=== PATIENT | female | born 1950 | race Caucasian/White ===

== ENCOUNTER → 2017-08-05 | Outpatient (CLI) | payer OTHER ==
[~2017-08-05] MED LIST: CLOP1TAB15 PO; FLUO40CA8 PO; IBUP-1450 PO; LEVO112T4 PO; METO50TA16 PO; PANT40TA PO; SUMA100T16 PO; TOPI50TA16 PO; VSC/5 PO
[2017-08-05 12:23] LABS: BASO % 0.5 %; BASO ABS # 0.04 K/uL (0-0.2); COMPLETE YES; EOS % 3.4 %; HEMATOCRIT 39.7 % (37-47); IG% 0.6 %; LYMPH % 31.3 %; LYMPH ABS # 2.59 K/uL (1.2-3.4); MEAN CORPUSCULAR HEMOGLOBIN 27.8 pg (25-34); MEAN CORPUSCULAR HGB CONC 32.7 g/dl (32-36); MEAN PLATELET VOLUME 10.4 fL (7.4-10.4); MONO % 5.6 %; NEUT % 58.6 %; PLATELET COUNT 290 K/uL (130-400); RED BLOOD COUNT 4.67 M/uL (4.2-5.4); WHITE BLOOD COUNT 8.28 K/uL (4.8-10.8)
[2017-08-05 13:22] LABS: CHOLESTEROL/HDL RATIO 4.4; THYROID STIMULATING HORMONE 0.801 uIu/ml (0.300-4.500)
[2017-08-05 14:39] LABS: ESTIMATED AVERAGE GLUCOSE 131 mg/dl; HA1C FLAG Normal (Normal)
== END | disposition home or self-care (01) ==
LOC: C.LAB 10:40
PROVIDERS: ATTEND Family Medicine
DX: E03.9 Hypothyroidism, unspecified (principal); I10 Essential (primary) hypertension; I67.9 Cerebrovascular disease, unspecified; E11.9 Type 2 diabetes mellitus without complications

== ENCOUNTER 2017-12-22 22:19 | Observation (INO) | payer OTHER ==
[~2017-12-22] VITALS: Ht 170.2 cm; Wt 80.7 kg
[~2017-12-22 22:19] MED LIST changes: +FLUO10CA48 PO; -IBUP-1450 PO; +LOSA1TAB38 PO; -METO50TA16 PO; -SUMA100T16 PO
--- NOTE | 2017-12-22 22:46 | EMERGENCY ROOM VISIT NOTE ---
History Report prepared by Melba: Roxy Ramires Under the Supervision of: Dr. Tyron Wilkinson M.D. First contact with patient: 22:24 Chief Complaint: CHEST PAIN Stated Complaint: CHEST PAIN History of Present Illness The patient is a 67 year old female who presents to the Emergency Room with complaints of worsening substernal chest pain that began about 5 hours prior to arrival. She reports that she was sitting down after eating dinner today when she began experiencing a pressure on her chest that did not seem to go away. The patient notes that she took Lorazepam because she thought she was going to have a panic attack, noting she did not take any Nitroglycerin to relieve her symptoms. She denies any shortness of breath, sweating, nausea, vomiting, or diarrhea. She reports that refused a bypass in September, but her symptoms feel similar to what they were back then. Source of History: patient Onset: about 5 hours prior to arrival Position: chest (left) Quality: other (left chest pressure) Timing: worsening Associated Symptoms: No SOB, No nausea, No vomiting, No diarrhea Note: Patient denies sweating. Review of Systems See HPI for pertinent positives and negatives. A total of ten systems were reviewed and were otherwise negative. Past Medical & Surgical Medical Problems: (1) Anxiety (2) Chest pain (3) Chest pain in adult (4) Diabetes (5) HTN (hypertension) CAD Family History FH: heart disease Social History Smoking Status: Former Smoker Drug Use: none Marital Status: Housing Status: lives alone Occupation Status: employed Current/Historical Medications Scheduled Aspirin (Aspirin Ec), 81 MG PO DAILY Atorvastatin (Lipitor), 80 MG PO QPM Clopidogrel (Plavix), 75 MG PO QAM Fluoxetine (Prozac), 40 MG PO QAM Fluoxetine (Prozac), 10 MG PO QAM Levothyroxine Sodium (Levothyroxine Sodium), 112 MG PO QAM Losartan Potassium (Cozaar), 100 MG PO DAILY Metformin Hcl Er (Glucophage Er), 1,000 MG PO QPM Metoprolol Tartrate (Lopressor) (Lopressor), 12.5 MG PO BID Pantoprazole (Protonix), 40 MG PO QAM Solifenacin (Vesicare), 5 MG PO QAM Topiramate (Topamax), 50 MG PO QAM Scheduled PRN Lorazepam (Lorazepam), 0.5 MG PO Q6 PRN for Anxiety Allergies Coded Allergies: Acetaminophen (Verified Allergy, Intermediate, NUMBNESS OF FACE, 09/28/17) Oxycodone (Verified Allergy, Intermediate, NUMBNESS OF FACE, 09/28/17) CHASIDY Inhibitors (Verified Allergy, Unknown, UNKNOWN, 09/28/17) Aspirin (Unverified Allergy, Unknown, GI SYMPTOMS, 09/28/17) Caffeine (Unverified Allergy, Unknown, GI SYMPTOMS, 09/28/17) Codeine (Unverified Allergy, Unknown, GI SYMPTOMS, 09/28/17) Levofloxacin (Unverified Allergy, Unknown, HEADACHE, 09/28/17) Physical Exam Vital Signs Date Time Temp Pulse Resp B/P (MAP) Pulse Ox O2 Delivery O2 Flow Rate FiO2 12/23/17 00:56 56 18 123/73 97 Nasal Cannula 2.0 12/23/17 00:05 98 Nasal Cannula 2.0 12/22/17 23:39 56 18 110/70 93 Room Air 12/22/17 23:32 62 18 139/79 97 Room Air 12/22/17 23:02 56 18 117/66 96 Room Air 12/22/17 22:45 Room Air 12/22/17 22:45 98 Room Air 12/22/17 22:34 59 12/22/17 22:21 36.3 83 16 161/82 98 Room Air Physical Exam GENERAL: Awake, alert, uncomfortable-appearing, in no distress HENT: Dry mucous membranes. Normocephalic, atraumatic. Oropharynx unremarkable. EYES: Normal conjunctiva. Sclera non-icteric. NECK: Supple. No nuchal rigidity. FROM. No JVD. RESPIRATORY: Clear to auscultation. CARDIAC: Regular rate, normal rhythm. Extremities warm and well perfused. Pulses equal. ABDOMEN: Soft, non-distended. No tenderness to palpation. No rebound or guarding. No masses. RECTAL: Deferred. MUSCULOSKELETAL: Chest examination reveals no tenderness. The back is symmetrical on inspection without obvious abnormality. There is no CVA tenderness to palpation. No joint edema. LOWER EXTREMITIES: Calves are equal size bilaterally and non-tender. No edema. No discoloration. NEURO: Normal sensorium. No sensory or motor deficits noted. SKIN: No rash or jaundice noted. Medical Decision & Procedures ER Provider Diagnostic Interpretation: X-ray: Per my interpretation, radiologist review. CHEST ONE VIEW PORTABLE HISTORY: Atypical CHEST PAIN COMPARISON: Chest 09/28/2017. FINDINGS: The lungs are clear. The heart is mildly enlarged. No pleural effusions. No pneumothorax. Surgical clips within the left neck. Mild elevation of the right hemidiaphragm. IMPRESSION: Mild elevation of the right hemidiaphragm. Otherwise, no acute process within the chest. Electronically signed by: Pop Villafana M.D. 12/22/2017 11:06 PM Dictated Date/Time: 12/22/2017 11:05 PM Laboratory Results 12/22/17 22:45 Red Blood Count 4.36, Mean Corpuscular Volume 83.5, Mean Corpuscular Hemoglobin 27.8, Mean Corpuscular Hemoglobin Concent 33.2, Mean Platelet Volume 9.8, Neutrophils (%) (Auto) 53.5, Lymphocytes (%) (Auto) 36.9, Monocytes (%) (Auto) 6.2, Eosinophils (%) (Auto) 2.3, Basophils (%) (Auto) 0.6, Neutrophils # (Auto) 4.52, Lymphocytes # (Auto) 3.11, Monocytes # (Auto) 0.52, Eosinophils # (Auto) 0.19, Basophils # (Auto) 0.05 12/22/17 22:45 Test 12/22/17 22:45 12/23/17 00:04 White Blood Count 8.43 K/uL (4.8-10.8) Red Blood Count 4.36 M/uL (4.2-5.4) Hemoglobin 12.1 g/dL (12.0-16.0) Hematocrit 36.4 % (37-47) Mean Corpuscular Volume 83.5 fL (80-100) Mean Corpuscular Hemoglobin 27.8 pg (25-34) Mean Corpuscular Hemoglobin Concent 33.2 g/dl (32-36) Platelet Count 244 K/uL (130-400) Mean Platelet Volume 9.8 fL (7.4-10.4) Neutrophils (%) (Auto) 53.5 % Lymphocytes (%) (Auto) 36.9 % Monocytes (%) (Auto) 6.2 % Eosinophils (%) (Auto) 2.3 % Basophils (%) (Auto) 0.6 % Neutrophils # (Auto) 4.52 K/uL (1.4-6.5) Lymphocytes # (Auto) 3.11 K/uL (1.2-3.4) Monocytes # (Auto) 0.52 K/uL (0.11-0.59) Eosinophils # (Auto) 0.19 K/uL (0-0.5) Basophils # (Auto) 0.05 K/uL (0-0.2) RDW Standard Deviation 42.7 fL (36.4-46.3) RDW Coefficient of Variation 14.0 % (11.5-14.5) Immature Granulocyte % (Auto) 0.5 % Immature Granulocyte # (Auto) 0.04 K/uL (0.00-0.02) Prothrombin Time 10.0 SECONDS (9.0-12.0) Prothromb Time International Ratio 1.0 (0.9-1.1) Activated Partial Thromboplast Time 22.9 SECONDS (21.0-31.0) Partial Thromboplastin Ratio 0.9 Anion Gap 8.0 mmol/L (3-11) Est Creatinine Clear Calc Drug Dose 58.8 ml/min Estimated GFR () 67.4 Estimated GFR (Non- 58.1 BUN/Creatinine Ratio 21.8 (10-20) Calcium Level 9.2 mg/dl (8.5-10.1) Magnesium Level 1.8 mg/dl (1.8-2.4) Total Bilirubin 0.3 mg/dl (0.2-1) Direct Bilirubin 0.1 mg/dl (0-0.2) Aspartate Amino Transf (AST/SGOT) 21 U/L (15-37) Alanine Aminotransferase (ALT/SGPT) 33 U/L (12-78) Alkaline Phosphatase 112 U/L (45-117) Total Protein 7.0 gm/dl (6.4-8.2) Albumin 3.6 gm/dl (3.4-5.0) Lipase 242 U/L (73-393) Troponin I < 0.015 ng/ml (0-0.045) Laboratory results reviewed by me Medications Administered Medications (Trade) Dose Ordered Sig/Jeanie Route Start Time Stop Time Status Last Admin Dose Admin Nitroglycerin (Nitrostat Tab) 0.4 mg NOW STAT SL 12/22/17 23:19 12/22/17 23:20 DC 12/22/17 23:27 0.4 MG Aspirin (Aspirin Chew) 324 mg NOW STAT PO 12/22/17 23:20 12/22/17 23:21 DC 12/22/17 23:27 324 MG Famotidine (Pepcid 20mg Iv Push) 20 mg NOW STAT IV 12/22/17 23:42 12/22/17 23:43 DC 12/22/17 23:52 20 MG ECG Per My Interpretation Indication: chest pain Rate (beats per minute): 62 Rhythm: sinus rhythm Findings: 1st degree AV block, no acute ischemic change, other (normal axis) ED Course 2224: The patient was evaluated in room A11. A complete history and physical exam was performed. 2111: Reevaluated the patient, who was resting with her family at bedside. Discussed some test findings and they verbalized complete understanding. Doing a second troponin. 0008: Discussed the patients case with Dr. Jackson, cardiology. The states that it is probably best to keep the patient here for a full evaluation and see how she does overnight. 0024: I reevaluated the patient and updated the patient on test findings. They verbalized agreement of the treatment plan. Medical Decision I reviewed the patient's past medical history, medications, and the nursing notes as described above. Differential diagnosis: Etiologies such as cardiac ischemia, aortic dissection, pulmonary embolism, pneumonia, pneumothorax, musculoskeletal, infections, pericarditis, myocarditis , esophageal rupture, gastrointestinal, as well as others were entertained. The patient is a 67-year-old woman with a past medical history of CAD status post LAD stenting in September, HTN ,diabetes who presents emergency department with substernal chest pressure similar to her prior [place] per hpi. Of note, in September had left heart catheterization that showed 90% ostial LAD lesion that was determined to be high risk and was referred to [facility] for possible bypass. However the patient reports that she declined bypass and received stenting. On arrival, the patient is uncomfortable but no acute distress, afebrile stable vital signs. EKG is without acute ischemia. Initial troponin approximately 4.5 hours after onset of symptoms is negative. Labs otherwise unremarkable. Chest x-ray negative. Symptoms improved with nitroglycerin and aspirin and also additionally improved after IV Pepcid. Given the patient's history, Heart score is 6, moderate risk. I discussed the case with Dr. Eller, the patient' s car refinisher, who agrees that it is reasonable to admit the patient for serial troponins and to monitor for recurrent symptoms. Case d/w Dr. Live, [facility] hospitalist who will admit the patient for further management. Medication Reconcilliation Current Medication List: was personally reviewed by me Consults Time Called: 7 Consulting Physician: Dr. Jackson, cardiology Returned Call: [phone] Discussed the patients case with Dr. Jackson, cardiology. The states that it is probably best to keep the patient here for a full evaluation and see how she does overnight.. Impression Primary Impression: Substernal precordial chest pain Scribe Attestation The scribe's documentation has been prepared under my direction and personally reviewed by me in its entirety. I confirm that the note above accurately reflects all work, treatment, procedures, and medical decision making performed by me. Departure Information Dispostion Being Evaluated By Hospitalist Referrals Landon Alvarez D.O. (PCP) Forms Call Back Authorization, HOME CARE DOCUMENTATION FORM, IMPORTANT VISIT INFORMATION Patient Instructions [facility]
[2017-12-22] MEDS ORDERED: ATV5X PO (22:59)
[2017-12-22] MEDS ORDERED: ATOR-26 PO (22:59)
[2017-12-22] MEDS ORDERED: ASPI81TA28 PO (22:59)
[2017-12-22] MEDS ORDERED: METO25TA56 PO (22:59)
[2017-12-22] MEDS ORDERED: METF500T5 PO (22:59)
[2017-12-22 23:00] LABS: BASO % 0.6 %; BASO ABS # 0.05 K/uL (0-0.2); EOS % 2.3 %; EOS ABS # 0.19 K/uL (0-0.5); HEMATOCRIT 36.4 % (37-47); HEMOGLOBIN 12.1 g/dL (12.0-16.0); IG# 0.04 K/uL (0.00-0.02); LYMPH % 36.9 %; LYMPH ABS # 3.11 K/uL (1.2-3.4); MEAN CELL VOLUME 83.5 fL (80-100); MEAN CORPUSCULAR HEMOGLOBIN 27.8 pg (25-34); MEAN CORPUSCULAR HGB CONC 33.2 g/dl (32-36); MEAN PLATELET VOLUME 9.8 fL (7.4-10.4); MONO % 6.2 %; MONO ABS # 0.52 K/uL (0.11-0.59); NEUT % 53.5 %; NEUT ABS # 4.52 K/uL (1.4-6.5); PLATELET COUNT 244 K/uL (130-400); RED CELL DISTRIBUTION WIDTH SD 42.7 fL (36.4-46.3); WHITE BLOOD COUNT 8.43 K/uL (4.8-10.8)
--- NOTE | 2017-12-22 23:08 | DIAGNOSTIC IMAGING REPORT ---
CHEST ONE VIEW PORTABLE HISTORY: Atypical CHEST PAIN COMPARISON: Chest 09/28/2017. FINDINGS: The lungs are clear. The heart is mildly enlarged. No pleural effusions. No pneumothorax. Surgical clips within the left neck. Mild elevation of the right hemidiaphragm. IMPRESSION: Mild elevation of the right hemidiaphragm. Otherwise, no acute process within the chest. Electronically signed by: Pop Villafana M.D. 12/22/2017 11:06 PM Dictated Date/Time: 12/22/2017 11:05 PM
[2017-12-22 23:11] LABS: PTT PATIENT 22.9 SECONDS (21.0-31.0)
[2017-12-22] MEDS ORDERED: NITROGLYCERIN 0.4 MG SL PER TAB CHARGE SL STA (23:19)
[2017-12-22] MEDS ORDERED: ASPIRIN 81 MG CHEW PO STA (23:20)
[2017-12-22 23:21] LABS: ALBUMIN 3.6 gm/dl (3.4-5.0); ALT/SGPT 33 U/L (12-78); BLOOD UREA NITROGEN 22 mg/dl (7-18); CALCIUM 9.2 mg/dl (8.5-10.1); CARBON DIOXIDE 26 mmol/L (21-32); CREATININE 0.99 mg/dl (0.60-1.20); GLUCOSE 136 mg/dl (70-99); LIPASE 242 U/L (73-393); SODIUM 139 mmol/L (136-145)
[2017-12-22 23:26] LABS: ALKALINE PHOSPHATASE 112 U/L (45-117); AST/SGOT 21 U/L (15-37)
[2017-12-22] MEDS ORDERED: FAMOTIDINE 20MG/5ML IV PUSH IV STA (23:42)
[2017-12-23] VITALS (14 sets, daily range): BP systolic 106–149; BP diastolic 56–81; PULSE 53–59; TEMP 36.6–37.3; O2SAT 95–99; Ht 170.2 cm; Wt 80.7 kg
--- NOTE | 2017-12-23 01:14 | History and Physical ---
History & Physical Date & Time of Service: Dec 23, 2017 at 00:49 Chief Complaint: Chest Pain Primary Care Physician: Landon Alvarez D.O. History of Present Illness Source: patient 67 y/o F Hx TIA, HTN, DM II, hypothyroidism, CAD - severe LAD disease, NSTEMI . The pt was transferred from our facility to [place] following catheterization. She underwent LAD stenting although consideration was given to bypass. She returns to the hospital today with R central chest pressure which she describes as similar in location to the pain she had during her recent STEMI. She states that the pain is not as severe and denies accompanying SOB, N/V, diaphoresis or lightheadedness. The pain abated with NTG provided in the ER. Past Medical/Surgical History 1) TIA 2) DM type II 3) HTN 4) GERD 5) Depression/anxiety 6) Hypothyroidism 7) Migraine headaches 8) CAD: Cardiac cath 09/2017: LM - Short, distal luminal irregularities LAD - 90% ostial LAD stenosis, 60-70% stenosis after take-off of large 1st diagonal, luminal irregularities as wraps around apex Circumflex - Dominant, luminal irregularities; 20% disease in large proximal OM1 RCA - Small, early-mid luminal irregularities. Pt underwent LAD stenting at [place] Family History FH: heart disease Social History Smoking Status: Former Smoker Drug Use: none Marital Status: Occupational Status: employed Allergies Coded Allergies: Acetaminophen (Verified Allergy, Intermediate, NUMBNESS OF FACE, 09/28/17) Oxycodone (Verified Allergy, Intermediate, NUMBNESS OF FACE, 09/28/17) CHASIDY Inhibitors (Verified Allergy, Unknown, UNKNOWN, 09/28/17) Aspirin (Unverified Allergy, Unknown, GI SYMPTOMS, 09/28/17) Caffeine (Unverified Allergy, Unknown, GI SYMPTOMS, 09/28/17) Codeine (Unverified Allergy, Unknown, GI SYMPTOMS, 09/28/17) Levofloxacin (Unverified Allergy, Unknown, HEADACHE, 09/28/17) Home Medications Scheduled Aspirin (Aspirin Ec), 81 MG PO DAILY Atorvastatin (Lipitor), 80 MG PO QPM Clopidogrel (Plavix), 75 MG PO QAM Fluoxetine (Prozac), 40 MG PO QAM Fluoxetine (Prozac), 10 MG PO QAM Levothyroxine Sodium (Levothyroxine Sodium), 112 MG PO QAM Losartan Potassium (Cozaar), 100 MG PO DAILY Metformin Hcl Er (Glucophage Er), 1,000 MG PO QPM Metoprolol Tartrate (Lopressor) (Lopressor), 12.5 MG PO BID Pantoprazole (Protonix), 40 MG PO QAM Solifenacin (Vesicare), 5 MG PO QAM Topiramate (Topamax), 50 MG PO QAM Scheduled PRN Lorazepam (Lorazepam), 0.5 MG PO Q6 PRN for Anxiety Review of Systems Constitutional: No fever, No chills, No sweats Eyes: No worsening of vision ENT: No hearing loss, No unusual epistaxis, No nasal symptoms Respiratory: No cough, No sputum, No wheezing Cardiovascular: + chest pain Abdomen: No pain, No nausea, No vomiting Musculoskeletal: No joint pain Genitourinary - Female: No dysuria, No urinary frequency, No urinary urgency Neurologic: No memory loss, No paralysis, No weakness Psychiatric: No depression symptoms Endocrine: No fatigue Hematologic / Lymphatic: No abnormal bleeding/bruising Integumentary: No rash Allergic / Immunologic: No environmental allergies Physical Exam Vital Signs Date Time Temp Pulse Resp B/P (MAP) Pulse Ox O2 Delivery O2 Flow Rate FiO2 12/23/17 00:05 98 Nasal Cannula 2.0 12/22/17 23:39 56 18 110/70 93 Room Air 12/22/17 23:32 62 18 139/79 97 Room Air 12/22/17 23:02 56 18 117/66 96 Room Air 12/22/17 22:45 Room Air 12/22/17 22:45 98 Room Air 12/22/17 22:34 59 12/22/17 22:21 36.3 83 16 161/82 98 Room Air General Appearance: WD/WN, no apparent distress Head: normocephalic Eyes: normal inspection ENT: normal ENT inspection, pharynx normal Neck: supple, no JVD Respiratory/Chest: chest non-tender, lungs clear, normal breath sounds Cardiovascular: regular rate, rhythm, no edema Abdomen/GI: normal bowel sounds, non tender, soft Back: normal inspection, no CVA tenderness Extremities/Musculoskelatal: normal inspection, no calf tenderness, normal capillary refill, no pedal edema Neurologic/Psych: hand ii thermal cutter II-XII nml as tested, no motor/sensory deficits, alert, oriented x 3 Skin: normal color Diagnostics Laboratory Results Results Past 24 Hours Test 12/22/17 22:45 12/23/17 00:04 Range/Units White Blood Count 8.43 4.8-10.8 K/uL Red Blood Count 4.36 4.2-5.4 M/uL Hemoglobin 12.1 12.0-16.0 g/dL Hematocrit 36.4 37-47 % Mean Corpuscular Volume 83.5 80-100 fL Mean Corpuscular Hemoglobin 27.8 25-34 pg Mean Corpuscular Hemoglobin Concent 33.2 32-36 g/dl Platelet Count 244 130-400 K/uL Mean Platelet Volume 9.8 7.4-10.4 fL Neutrophils (%) (Auto) 53.5 % Lymphocytes (%) (Auto) 36.9 % Monocytes (%) (Auto) 6.2 % Eosinophils (%) (Auto) 2.3 % Basophils (%) (Auto) 0.6 % Neutrophils # (Auto) 4.52 1.4-6.5 K/uL Lymphocytes # (Auto) 3.11 1.2-3.4 K/uL Monocytes # (Auto) 0.52 0.11-0.59 K/uL Eosinophils # (Auto) 0.19 0-0.5 K/uL Basophils # (Auto) 0.05 0-0.2 K/uL RDW Standard Deviation 42.7 36.4-46.3 fL RDW Coefficient of Variation 14.0 11.5-14.5 % Immature Granulocyte % (Auto) 0.5 % Immature Granulocyte # (Auto) 0.04 0.00-0.02 K/uL Prothrombin Time 10.0 9.0-12.0 SECONDS Prothromb Time International Ratio 1.0 0.9-1.1 Activated Partial Thromboplast Time 22.9 21.0-31.0 SECONDS Partial Thromboplastin Ratio 0.9 Sodium Level 139 136-145 mmol/L Potassium Level 4.0 3.5-5.1 mmol/L Chloride Level 105 98-107 mmol/L Carbon Dioxide Level 26 21-32 mmol/L Anion Gap 8.0 3-11 mmol/L Blood Urea Nitrogen 22 7-18 mg/dl Creatinine 0.99 0.60-1.20 mg/dl Est Creatinine Clear Calc Drug Dose 58.8 ml/min Estimated GFR () 67.4 Estimated GFR (Non- 58.1 BUN/Creatinine Ratio 21.8 10-20 Random Glucose 136 70-99 mg/dl Calcium Level 9.2 8.5-10.1 mg/dl Magnesium Level 1.8 1.8-2.4 mg/dl Total Bilirubin 0.3 0.2-1 mg/dl Direct Bilirubin 0.1 0-0.2 mg/dl Aspartate Amino Transf (AST/SGOT) 21 15-37 U/L Alanine Aminotransferase (ALT/SGPT) 33 12-78 U/L Alkaline Phosphatase 112 45-117 U/L Troponin I < 0.015 0-0.045 ng/ml Total Protein 7.0 6.4-8.2 gm/dl Albumin 3.6 3.4-5.0 gm/dl Lipase 242 73-393 U/L Diagnostic Radiology CXR: Mild elevation of the right hemidiaphragm. Otherwise, no acute process within the chest. EKG NSR - 1' AV block Impression Assessment and Plan 67 y/o F Hx TIA, HTN, DM II, hypothyroidism, CAD - severe LAD disease, NSTEMI . The pt was transferred from our facility to [place] following catheterization. She underwent LAD stenting although consideration was given to bypass. She returns to the hospital today with R central chest pressure which she describes as similar in location to the pain she had during her recent STEMI. She states that the pain is not as severe and denies accompanying SOB, N/V, diaphoresis or lightheadedness. The pain abated with NTG provided in the ER. 1) CAD - CP - pt assigned to observation for ACS - NTG/Morphine PRN - cont Plavix, ASA, Statin, Bblocker - to be evaluated by her rooter operator AM 2) HTN - cont Metoprolol, Losartan 3) DM - placed on SS 4) Levothyroxine - Synthroid Full code - Lovenox prophylaxis Total time for this admit including review of recent records, labs, imaging, EKG - discussion with pt and ER attending - 38 min Resuscitation Status VTE Prophylaxis Will order VTE Prophylaxis: Yes
[2017-12-23] MEDS ORDERED: MAGNESIUM HYDROXIDE SUSP 30 ML UDC PO PRN (01:15)
[2017-12-23] MEDS ORDERED: ONDANSETRON INJ 2 MG/ML 2 ML VIAL IV PRN (01:15)
[2017-12-23] MEDS ORDERED: NITROGLYCERIN 0.4 MG SL PER TAB CHARGE SL PRN (01:15)
[2017-12-23] MEDS ORDERED: MoRPHine SULFATE 2 MG/ML CARP IV PRN (01:15)
[2017-12-23] MEDS ORDERED: POLYETHYLENE (MIRALAX) 17 GM PACK PO PRN (01:15)
[2017-12-23] MEDS ORDERED: ALUMINUM/MAGNESIUM/SIMETH (MAALOX MAX) 30 ML UDC PO PRN (01:15)
[2017-12-23] MEDS ORDERED: LORAZEPAM 0.5 MG TAB PO PRN (01:30)
[2017-12-23] MEDS ORDERED: IV FLUIDS COMPLETED PRN (02:00)
[2017-12-23] MEDS ORDERED: LEVOTHYROXINE 112 MCG TAB PO SCH (06:00)
[2017-12-23] MEDS: INSULIN ASPART 100 UNITS/ML 3 ML PEN SC SCH ×3 (07:00→16:15)
[2017-12-23] MEDS ORDERED: ENOXAPARIN 40 MG/0.4 ML SYR SC SCH (07:00)
--- NOTE | 2017-12-23 08:15 | Family Medicine Progress Note ---
Progress Note Date of Service Dec 23, 2017. Subjective Pt slept well overnight. Says chest pain is currently 2/10. Last night when she came in it was 7/10, improved with NTG. States the pain has been intermittent, usually at night, over the past week. Is progressive, central pain radiating to the right shoulder. Has not yet made use of her nitrostat tabs prescribed to her since her stent placement in September. Has seen sew on operator Manuel laguerre since then. Was not aware that she was to use her nitrostat tab for this pain, she thought you would use it for more severe pain, more like her last event. So while the quality of the pain is similar, the severity is less. Denies SOB, blurred vision, abdominal upset, dyspepsia, fevers chills. ROS See HPI for pertinent positives and negatives. Medications Current Inpatient Medications Medications (Trade) Dose Ordered Sig/Jeanie Route Start Time Stop Time Status Last Admin Dose Admin Enoxaparin Sodium (Lovenox Inj) 40 mg Q24H SC 12/23/17 07:00 01/22/18 06:59 12/23/17 08:45 40 MG Al Hydrox/Mg Hydrox/Simethicone (Maalox Max Susp) 15 ml Q4H PRN PO 12/23/17 01:15 01/22/18 01:14 Magnesium Hydroxide (Milk Of Magnesia Susp) 30 ml Q12H PRN PO 12/23/17 01:15 01/22/18 01:14 Ondansetron HCl (Zofran Inj) 4 mg Q6H PRN IV 12/23/17 01:15 01/22/18 01:14 Nitroglycerin (Nitrostat Tab) 0.4 mg UD PRN SL 12/23/17 01:15 01/22/18 01:14 Morphine Sulfate (MoRPHine SULFATE INJ) 2 mg Q30M PRN IV 12/23/17 01:15 01/06/18 01:14 Polyethylene (Miralax Powder Packet) 17 gm DAILY PRN PO 12/23/17 01:15 01/22/18 01:14 Aspirin (Ecotrin Tab) 81 mg DAILY PO 12/23/17 09:00 01/22/18 08:59 12/23/17 08:47 81 MG Atorvastatin Calcium (Lipitor Tab) 80 mg QPM PO 12/23/17 21:00 01/22/18 20:59 Clopidogrel Bisulfate (plAVix TAB) 75 mg QAM PO 12/23/17 09:00 01/22/18 08:59 12/23/17 08:48 75 MG Fluoxetine HCl (Prozac Cap) 10 mg QAM PO 12/23/17 09:00 01/22/18 08:59 12/23/17 08:49 10 MG Fluoxetine HCl (Prozac Cap) 40 mg QAM PO 12/23/17 09:00 01/22/18 08:59 12/23/17 08:48 40 MG Levothyroxine Sodium (Synthroid Tab) 112 mcg DAILYBB PO 12/23/17 06:00 01/22/18 05:59 12/23/17 06:27 112 MCG Lorazepam (Ativan Tab) 0.5 mg Q6 PRN PO 12/23/17 01:30 01/22/18 01:29 12/23/17 14:14 0.5 MG Losartan Potassium (coZAAR TAB) 100 mg DAILY PO 12/23/17 09:00 01/22/18 08:59 12/23/17 08:49 100 MG Metoprolol Tartrate (Lopressor Tab) 12.5 mg BID PO 12/23/17 09:00 01/22/18 08:59 Pantoprazole Sodium (Protonix Tab) 40 mg QAM PO 12/23/17 09:00 01/22/18 08:59 12/23/17 08:48 40 MG Topiramate (Topamax Tab) 50 mg QAM PO 12/23/17 09:00 01/22/18 08:59 12/23/17 08:49 50 MG Miscellaneous Information (Order Awaiting Action) 1 ea QS N/A 12/23/17 08:00 01/22/18 07:59 Insulin Aspart (novoLOG ASPART) SLIDING SCALE G... ACHS SC 12/23/17 07:00 01/22/18 06:59 Miscellaneous (Iv Fluids Completed) 1 ea PRN PRN N/A 12/23/17 02:00 12/23/18 01:59 Objective Vital Signs Date Time Temp Pulse Resp B/P (MAP) Pulse Ox O2 Delivery O2 Flow Rate FiO2 12/23/17 15:22 36.8 54 19 123/67 (85) 96 Room Air 12/23/17 12:17 37.0 58 14 121/59 (79) 97 Room Air 12/23/17 11:58 Room Air 12/23/17 08:30 Room Air 12/23/17 08:01 36.6 59 12 141/81 (101) 97 Room Air 12/23/17 03:54 36.6 57 16 147/73 (97) 99 Room Air 12/23/17 02:13 36.6 58 15 149/75 97 Room Air 12/23/17 01:34 57 18 135/74 96 Room Air 12/23/17 00:56 56 18 123/73 97 Nasal Cannula 2.0 12/23/17 00:05 98 Nasal Cannula 2.0 12/22/17 23:39 56 18 110/70 93 Room Air 12/22/17 23:32 62 18 139/79 97 Room Air 12/22/17 23:02 56 18 117/66 96 Room Air 12/22/17 22:45 Room Air 12/22/17 22:45 98 Room Air 12/22/17 22:34 59 12/22/17 22:21 36.3 83 16 161/82 98 Room Air Physical Exam Notes: GENERAL: Awake, alert, in no distress EYES: Normal conjunctiva. Sclera non-icteric. RESPIRATORY: Clear to auscultation. CARDIAC: Regular rate, normal rhythm. Extremities warm and well perfused. Pulses equal. Neg for carotid bruits ABDOMEN: Soft, non-distended. No tenderness to palpation. No rebound or guarding. No masses. MUSCULOSKELETAL: Chest examination reveals no tenderness. The back is symmetrical on inspection without obvious abnormality. LOWER EXTREMITIES: Calves are equal size bilaterally and non-tender. No edema. No discoloration. NEURO: No motor deficits noted. SKIN: No rash or jaundice noted. Laboratory Results 12/22/17 22:45 Red Blood Count 4.36, Mean Corpuscular Volume 83.5, Mean Corpuscular Hemoglobin 27.8, Mean Corpuscular Hemoglobin Concent 33.2, Mean Platelet Volume 9.8, Neutrophils (%) (Auto) 53.5, Lymphocytes (%) (Auto) 36.9, Monocytes (%) (Auto) 6.2, Eosinophils (%) (Auto) 2.3, Basophils (%) (Auto) 0.6, Neutrophils # (Auto) 4.52, Lymphocytes # (Auto) 3.11, Monocytes # (Auto) 0.52, Eosinophils # (Auto) 0.19, Basophils # (Auto) 0.05 12/22/17 22:45 Test 12/22/17 22:45 12/23/17 11:08 12/23/17 11:21 White Blood Count 8.43 K/uL (4.8-10.8) Red Blood Count 4.36 M/uL (4.2-5.4) Hemoglobin 12.1 g/dL (12.0-16.0) Hematocrit 36.4 % (37-47) Mean Corpuscular Volume 83.5 fL (80-100) Mean Corpuscular Hemoglobin 27.8 pg (25-34) Mean Corpuscular Hemoglobin Concent 33.2 g/dl (32-36) Platelet Count 244 K/uL (130-400) Mean Platelet Volume 9.8 fL (7.4-10.4) Neutrophils (%) (Auto) 53.5 % Lymphocytes (%) (Auto) 36.9 % Monocytes (%) (Auto) 6.2 % Eosinophils (%) (Auto) 2.3 % Basophils (%) (Auto) 0.6 % Neutrophils # (Auto) 4.52 K/uL (1.4-6.5) Lymphocytes # (Auto) 3.11 K/uL (1.2-3.4) Monocytes # (Auto) 0.52 K/uL (0.11-0.59) Eosinophils # (Auto) 0.19 K/uL (0-0.5) Basophils # (Auto) 0.05 K/uL (0-0.2) RDW Standard Deviation 42.7 fL (36.4-46.3) RDW Coefficient of Variation 14.0 % (11.5-14.5) Immature Granulocyte % (Auto) 0.5 % Immature Granulocyte # (Auto) 0.04 K/uL (0.00-0.02) Prothrombin Time 10.0 SECONDS (9.0-12.0) Prothromb Time International Ratio 1.0 (0.9-1.1) Activated Partial Thromboplast Time 22.9 SECONDS (21.0-31.0) Partial Thromboplastin Ratio 0.9 Anion Gap 8.0 mmol/L (3-11) Est Creatinine Clear Calc Drug Dose 58.8 ml/min Estimated GFR () 67.4 Estimated GFR (Non- 58.1 BUN/Creatinine Ratio 21.8 (10-20) Calcium Level 9.2 mg/dl (8.5-10.1) Magnesium Level 1.8 mg/dl (1.8-2.4) Total Bilirubin 0.3 mg/dl (0.2-1) Direct Bilirubin 0.1 mg/dl (0-0.2) Aspartate Amino Transf (AST/SGOT) 21 U/L (15-37) Alanine Aminotransferase (ALT/SGPT) 33 U/L (12-78) Alkaline Phosphatase 112 U/L (45-117) Total Protein 7.0 gm/dl (6.4-8.2) Albumin 3.6 gm/dl (3.4-5.0) Lipase 242 U/L (73-393) Bedside Glucose 94 mg/dl (70-90) Troponin I < 0.015 ng/ml (0-0.045) Assessment and Plan 67F admitted for substernal chest pain PMH: TIA, DM type II, HTN, GERD, Depression/anxiety, Hypothyroidism, Migraine headaches, CAD: Cardiac cath 09/2017: LM - Short, distal luminal irregularities LAD - 90% ostial LAD stenosis, 60-70% stenosis after take-off of large 1st diagonal, luminal irregularities as wraps around apex Circumflex - Dominant, luminal irregularities; 20% disease in large proximal OM1 RCA - Small, early-mid luminal irregularities. Pt underwent LAD stenting at [facility] Chest pain rule out - troponins negative x3. EKG performed 12/22/17 revealed normal sinus rhythm with first-degree AV block compared to the prior tracing dated 09/29/17 the T- wave inversions in the anterolateral leads are less pronounced with subtle residual T-wave inversion limited to lead aVL and V2. Cardiology consulted -- Dr. Cotto will take for angiography today/tomorrow. NPO. HTN - cont metoprolol, losartan DM - on ISS Hypothyroid - cont synthroid. DVT ppx - lovenox daily Code FULL Dispo TELE DVT ppx: Lovenox 40 Code: FULL Dispo: Tele for Obs Continued [facility] stay due to: abnormal vital signs Discharge planning: home Resident Tracking Resident Involvement: Resident Care Provided Care Provided: Adult Hospital Medicine
[2017-12-23] MEDS ORDERED: PANTOprazole SOD 40 MG TAB PO SCH (09:00)
[2017-12-23] MEDS ORDERED: METOPROLOL TARTRATE 25 MG TAB PO SCH (09:00)
[2017-12-23] MEDS ORDERED: FLUOXETINE HCL 10 MG CAP PO SCH (09:00)
[2017-12-23] MEDS ORDERED: TOPIRAMATE 50 MG TAB PO SCH (09:00)
[2017-12-23] MEDS ORDERED: CLOPIDOGREL BISULFATE 75 MG TAB PO SCH (09:00)
[2017-12-23] MEDS ORDERED: LOSARTAN POTASSIUM 50 MG TAB PO SCH (09:00)
[2017-12-23] MEDS ORDERED: ASPIRIN 81 MG ECTAB PO SCH (09:00)
[2017-12-23] MEDS ORDERED: FLUOXETINE HCL 20 MG CAP PO SCH (09:00)
--- NOTE | 2017-12-23 10:24 | Cardiology Consultation ---
Cardiology Consultation Date of Consultation: Dec 23, 2017 History of Present Illness Felecia Kirk is a 67 year old female seen in cardiology consultation per the request of Dr. Live for the evaluation of chest discomfort. The patient states that she was in her normal state of health yesterday. She was preparing her evening meal at 630 when she noted midline chest discomfort that she describes as a pressure that persisted for several hours and ultimately at 10:30 PM she sought treatment in the emergency department. She notes that the pressure was resolved after a dose of sublingual nitroglycerin. EKG performed revealed sinus rhythm with subtle T-wave inversion limited to lead V2 which was actually improved compared to her prior admission in September. The patient notes that she has been struggling with anxiety since her initial cardiac event in September 2017. She took a lorazepam yesterday shortly after the onset of her symptoms which did not seem to help. She notes that she has not had recent chest discomfort similar to this and she had been very concerned that this was reminiscent of the discomfort that she felt at the time of her recent myocardial infarction. She states that she has not been able to complete cardiac rehabilitation due to her work schedule and she has not been very physically active. She has not missed any doses of aspirin or clopidogrel At present, she feels improved, but still notes a slight residual pressure in her chest. Past Medical/Surgical History Problem List: Medical Problems: (1) Anxiety (2) Chest pain (3) Chest pain in adult (4) Diabetes (5) HTN (hypertension) History Past Medical History: 1. Patient has a history of coronary heart disease, having presented to [facility] in September 2017 with chest discomfort and ultimate findings of a non-ST segment elevation myocardial infarction. Diagnostic cardiac catheterization was performed by Dr. Josué Reyes revealed high-grade 90% proximal LAD stenosis followed by 80% mid LAD stenosis. The patient was transferred to [facility] for consideration of bypass surgery. She was seen there by both cardiothoracic surgery and interventional cardiology and the patient was offered options of single vessel bypass versus complex PCI and she elected for complex PCI. She ultimately underwent to drug-eluting stents, one to the proximal LAD and one to the mid LAD performed by Dr. Vasquez. Per the report, the angiographic result was favorable. 2. Prior to her myocardial infarction she had been on chronic aspirin and clopidogrel due to past history of mini strokes Past Surgical History: Cardiac catheterization as outlined above Social History: Patient quit cigarette smoking 10 years ago. 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 A total of 10 systems reviewed and were otherwise negative. Allergies Coded Allergies: Acetaminophen (Verified Allergy, Intermediate, NUMBNESS OF FACE, 09/28/17) Oxycodone (Verified Allergy, Intermediate, NUMBNESS OF FACE, 09/28/17) CHASIDY Inhibitors (Verified Allergy, Unknown, UNKNOWN, 09/28/17) Aspirin (Unverified Allergy, Unknown, GI SYMPTOMS, 09/28/17) Caffeine (Unverified Allergy, Unknown, GI SYMPTOMS, 09/28/17) Codeine (Unverified Allergy, Unknown, GI SYMPTOMS, 09/28/17) Levofloxacin (Unverified Allergy, Unknown, HEADACHE, 09/28/17) Medications Reported Home Medications Medications Dose Route/Sig Max Daily Dose Days Date Category Dose Instructions Lopressor (Metoprolol Tartrate) 25 Mg Tab 12.5 Mg PO BID 12/22/17 Reported Lipitor (Atorvastatin Calcium) 80 Mg Tab 80 Mg PO QPM 12/22/17 Reported Aspirin Ec (Aspirin) 81 Mg Tab 81 Mg PO DAILY 12/22/17 Reported Lorazepam 0.5 Mg Tab 0.5 Mg PO Q6 PRN 12/22/17 Reported Glucophage Er (Metformin HCl) 500 Mg Tab 1,000 Mg PO QPM 12/22/17 Reported Cozaar (Losartan Potassium) 100 Mg Tab 100 Mg PO DAILY 09/28/17 Reported Prozac (Fluoxetine HCl) 10 Mg Cap 10 Mg PO QAM 09/28/17 Reported total dose 50mg Vesicare (Solifenacin) 5 Mg Tab 5 Mg PO QAM 12/22/15 Reported Topamax (Topiramate) 50 Mg Tab 50 Mg PO QAM 12/22/15 Reported Levothyroxine Sodium 112 Mcg Tab 112 Mg PO QAM 12/22/15 Reported Prozac (Fluoxetine HCl) 40 Mg Cap 40 Mg PO QAM 12/22/15 Reported total dose 50mg Protonix (Pantoprazole Sodium) 40 Mg Tab 40 Mg PO QAM 12/22/15 Reported Plavix (Clopidogrel Bisulfate) 75 Mg Tab 75 Mg PO QAM 12/22/15 Reported Physical Exam Vital Signs (Last 8hrs): Last 8 Hrs Date Time Temp Pulse Resp B/P (MAP) Pulse Ox O2 Delivery O2 Flow Rate FiO2 12/23/17 08:01 36.6 59 12 141/81 (101) 97 Room Air 12/23/17 03:54 36.6 57 16 147/73 (97) 99 Room Air 12/23/17 02:13 36.6 58 15 149/75 97 Room Air General Appearance: Alert and Oriented x3. NAD. Head: Normocephalic Atraumatic. Eyes: PERRLA, EOMI, conjunctiva and sclera clear Neck: Supple. No carotid bruits noted. No JVD. No HJD. Respiratory: Breath sounds clear to auscultation bilaterally. No w/r/r. Cardiovascular: Reg rate and rhythm. S1 and S2 noted. No murmurs, rubs, gallops. PMI non displace. Abdomen: Normal bowel sounds, soft nontender. no abdominal bruits. Extremities: No edema, no clubbing or cyanosis. distal pulses 2/4 bilaterally. Neuro: No focal deficits. Psychiatric: Normal affect. Data Last Resulted 12/22/17 22:45 Red Blood Count 4.36, Mean Corpuscular Volume 83.5, Mean Corpuscular Hemoglobin 27.8, Mean Corpuscular Hemoglobin Concent 33.2, Mean Platelet Volume 9.8, Neutrophils (%) (Auto) 53.5, Lymphocytes (%) (Auto) 36.9, Monocytes (%) (Auto) 6.2, Eosinophils (%) (Auto) 2.3, Basophils (%) (Auto) 0.6, Neutrophils # (Auto) 4.52, Lymphocytes # (Auto) 3.11, Monocytes # (Auto) 0.52, Eosinophils # (Auto) 0.19, Basophils # (Auto) 0.05 Last Resulted 12/22/17 22:45 Past 24 Hours Test 12/22/17 22:45 12/23/17 00:04 12/23/17 04:25 Range/Units Prothromb Time International Ratio 1.0 0.9-1.1 Prothrombin Time 10.0 9.0-12.0 SECONDS Troponin I < 0.015 < 0.015 < 0.015 0-0.045 ng/ml EKG performed 12/22/17 revealed normal sinus rhythm with first-degree AV block compared to the prior tracing dated 09/29/17 the T-wave inversions in the anterolateral leads are less pronounced with subtle residual T-wave inversion limited to lead aVL and V2. Assessment & Plan Impression: 67-year-old female 1. Chest discomfort, negative enzymes and negative EKG 1. 2. History of recent non-ST segment elevation myocardial infarction 3 months ago with subsequent complex PCI to the proximal mid LAD with drug-eluting stents. 3. Anxiety 4. Dyslipidemia 5. Type 2 diabetes mellitus Plan: At present, recommend continuation of aspirin 81 mg daily and clopidogrel 75 mg daily. She is very concerned that the symptoms were reminiscent of her anginal discomfort at the time of her myocardial infarction. At present she feels better and her enzymes are negative 3. Repeat EKG has been requested. I recommended coronary angiography is necessary for definitive evaluation given the nature of her symptoms and the complexity of her LAD disease. I am going to make her n.p.o. and will discuss scheduling her for angiography later today or first or perhaps tomorrow at [facility]. Pateint was agreeable to this.
[2017-12-23] MEDS ORDERED: MIDAZOLAM HCL 1 MG/ML 2ML VIAL ONE ×2 (15:11→16:40)
[2017-12-23] MEDS ORDERED: FENTANYL CITRATE INJ 50 MCG/1 ML 2 ML VIAL ONE (15:11)
[2017-12-23] MEDS ORDERED: HEPARIN SOD (PORCINE) 1000 UNIT/ML 10 ML VIAL ONE (15:11)
[2017-12-23] MEDS ORDERED: LIDOCAINE HCL 1% 20 ML VIAL ONE (15:11)
[2017-12-23] MEDS ORDERED: NiCARDipine HCL INJ 2.5 MG/ML 10 ML AMP ONE (15:12)
[2017-12-23] MEDS ORDERED: NITROGLYCERIN/D5W 100MCG/ML 20ML SYR ONE (15:12)
--- NOTE | 2017-12-23 17:47 | Post Sedation Assessment ---
Post Sedation Assessment General Date of Sedation Dec 23, 2017. Vital Signs: Vital Signs Past 12 Hours Date Time Temp Pulse Resp B/P (MAP) Pulse Ox O2 Delivery O2 Flow Rate FiO2 12/23/17 17:32 56 18 109/71 (84) 98 Room Air 12/23/17 15:22 36.8 54 19 123/67 (85) 96 Room Air 12/23/17 12:17 37.0 58 14 121/59 (79) 97 Room Air 12/23/17 11:58 Room Air 12/23/17 08:30 Room Air 12/23/17 08:01 36.6 59 12 141/81 (101) 97 Room Air Post Procedure Recovery Score Activity: (2) Moves 4 extremities * Respiration: (2) Deep breath/cough Circulation: (2) +/-20% PreAnes Value Consciousness: (2) Fully Awake Oxygen Saturation: (2) > 92% On Room Air Post Anesthesia Score: 10 Discharge Sedation Level of Care: Fast Track Phase II Post Sedation Plan On clinical assessment, the patient appears to have tolerated the sedation without complications. Patient is recovering as anticipated. Patient will continue to be monitored by nursing and may be discharged when sedation discharge criteria are met per below protocol. Upon Completions of procedure and additional 15 minutes continue every 5 minute vital signs and the P.A.R. score; then discharge to a Phase I or Fast Track to Phase II per the following guidelines: * Discharge Patient to appropriate Phase II area if PAR is 8 or greater or return to pre- procedure baseline. The post - procedure orders will be as directed. * If PAR score is less than 8 or not return to pre-procedure baseline then patient will follow Phase I monitoring till PAR is reached for Phase II. The Phase I may be done in procedure room or may call to secure a Phase I area. * If naloxone or flumazenil are used for reversal, hold in Phase I for an additional 60 -120 minutes before discharge to Phase II. Please call the Sedation Physician to re-evaluate and complete post-note for discharge to Phase II area. Do NOT discharge from procedure sedation or Phase 1 until post- sedation evaluation note is complete by procedure /sedation MD Sedation Discharge Instructions to be given to the patient at discharge to home.
--- NOTE | 2017-12-23 17:47 | Pre Sedation Assessment ---
Pre Sedation Assessment General Date of Sedation: Dec 23, 2017. Vital Signs Past 12 Hours Date Time Temp Pulse Resp B/P (MAP) Pulse Ox O2 Delivery O2 Flow Rate FiO2 12/23/17 17:32 56 18 109/71 (84) 98 Room Air 12/23/17 15:22 36.8 54 19 123/67 (85) 96 Room Air 12/23/17 12:17 37.0 58 14 121/59 (79) 97 Room Air 12/23/17 11:58 Room Air 12/23/17 08:30 Room Air 12/23/17 08:01 36.6 59 12 141/81 (101) 97 Room Air Review Cardiovascular: regular rate, rhythm, no edema Lungs: chest non-tender, lungs clear Pre-Sedation Airway Assessment Smoking Status: Never Smoker Hx of Sleep Apnea: No Hx of difficult intubation: No Short Thick Neck: No Thyro-mental Distance: > 3 Finger Breadths Oral Cavity: WNL Mallampati Classification: Class II ASA Classification: Class II NPO Status Date of Last Intake of Fluids: Dec 23, 2017 Time of Last Intake of Fluids: 729 Date of Last Intake of Solids: Dec 23, 2017 Time of Last Intake of Solids: 729 Procedure Planning Contraindications for Sedation: None Current Medications Reviewed: Yes Notes The planned sedation has been discussed with the patient. Informed Consent was obtained. I have identified the patient, determined the appropriateness of sedation and have assessed the patient immediately prior to the procedure. All medicine(s) and interventions are by my order.
[2017-12-23] MEDS ORDERED: SODIUM CHLORIDE 0.9% 1000ML 1,000 ML IV SCH (18:00)
--- NOTE | 2017-12-23 18:14 | Cardiac Catheterization ---
Procedure Note Procedure Date Dec 23, 2017. Pre-Procedure Diagnosis Angina AUC Score 7 Post-Procedure Diagnosis Mild CAD, Normal Intracardiac Pressures Procedure(s) Performed Coronary Angiography, Left Heart Cath Family [employer] Eric Loan Review Manager(s) layton Estimated Blood Loss 15 Medication(s) Fentanyl, Heparin, Nicardipine, Nitroglycerin, Versed, Lidocaine 1% Summary of Findings Indication: Suspected unstable angina Access: 6Fr right radial artery Catheters: Loop Findings: LM - Luminal irregularities LAD - Widely patent ostial to mid LAD stents, 20-30% mid segment disease distal to prior stents, luminal irregularities as wraps around apex. - Small 1st diagonal with 40-50% distal disease Circumflex - Dominant, moderate caliber, luminal irregularities, 20% in moderate caliber OM1 RCA - Non-dominant, small, luminal irregularities. LVEDP - 15 Arterial Closure: TR Band Summary: 1. Mild non-obstructive coronary artery disease - Widely patent ostial to mid LAD stents 2. Normal intracardiac filling pressure Recommendations: Evaluation for noncardiac causes of chest pain Continued ASCVD risk factor modification and DAPT. Hemodynamics Rest Ao: 102/56/76 Final Ao: 125/63/89 LV: 117/15 Recommendations Medical therapy and/or Counseling Specimens None Radiation Exposure (mGy) 1209 Contrast (mls) 55 Visi Fluids (cc crystalloids) 130 NSS Drains None Anesthesia Moderate Procedural Complication(s) None Disposition PCU ACC Data Cardiac Status Clinical evaluation leading to the procedure CAD Presntation: Unstable angina Anginal Classification: CCS IV Heart Failure: No, NYHA Class: CCS I Cardiogenic Shock w/in 24Hrs: No Cardiac Arrest w/in 24Hrs: No Imaging studies past 6 months: Yes Stress studies past 6 months: No Closure Device Percutaneous Entry Location: Radial Closure Device: Radial Band Recommendations: Medical therapy and/or Counseling Intraprocedure Events Significant Dissection: No Perforation: No
[2017-12-23] MEDS ORDERED: NTRSLP4 SL (20:06)
--- NOTE | 2017-12-23 20:07 | Cardiology Progress Note ---
Cardiology Progress Note Date of Service Dec 23, 2017. Cardiology Progress Note Patient reassessed post cardiac cath. LAD stents were patent. Based on cardiac cath, chest pain likely due to anxiety. Her radial artery band is off. She is stable for discharge from my standpoint. She needs to follow the post cardiac cath instructions for radial access as noted below. Continue same cardiac medications. Pt can call our office for post hospital follow up visit with Dr white at , visit within 2 weeks. Recommend cardiac rehab, which patient has yet to complete. Rehab referral placedNely Cotto, DO Discharge Instructions: ACTIVITY RECOMMENDATIONS: Excess manipulation of the wrist should be avoided for the next 24-48 hours. * No lifting over 2 pounds (approximately a 1/2 gallon of milk) with the utilized arm for 24 hours. * No strenuous activity such as bowling or tennis for 3 days. * Keep the site of the procedure covered with a bandage for 24 hours. *You may shower the day after the procedure. Do not take a tub bath or submerge the puncture site in water for the next 3 days. *Do not operate any motorized equipment for 3 days. SPECIAL CARE INSTRUCTIONS: The site may be slightly bruised and sore following your procedure. Should any of the following occur, contact the Dr. who performed your procedure. 1. Redness/inflammation, swelling, chills, or fever, or colored drainage at procedure site within 3-7 days after your procedure. 2. Coldness, discoloration, ongoing numbness, severe pain, or swelling. Expect mild tingling of hand and tenderness at the puncture site for up to three days. If this persists beyond three days, or other symptoms develop, notify the Dr. who performed your procedure. BLEEDING: If the procedure site on your wrist begins to bleed, do not panic 1. Place 1 or 2 fingers firmly just slightly above the insertion site to stop the bleeding. You may be able to feel your pulse as you hold pressure. 2. Lift your finger after 5 minutes to see if the bleeding has stopped. 3. Once the bleeding has stopped, gently wipe the wrist area clean with a bandage. * If the bleeding from your wrist does not stop after 10 minutes, or if there is a large amount of bleeding or spurting, call 911 ([address] not drive yourself to the hospital). SKIN IRRITATION: * You may experience some redness and/or swelling in the area where radiation was administered. If any skin irritation occurs, please contact your family physician. FOLLOW UP VISIT: Keep any scheduled doctor appointments.
--- NOTE | 2017-12-23 20:13 | Discharge Instructions ---
Discharge Instructions Date of Service Dec 23, 2017. Admission Reason for Admission: Chest Pain In Adult Discharge Discharge Diagnosis / Problem: Chest pain in adult Discharge Goals Goal(s): Decrease discomfort, Improve function, Learn about illness, Diagnostic testing Activity Recommendations Activity Limitations: per Instructions/Follow-up section . Instructions / Follow-Up Instructions / Follow-Up You were admitted due to chest pain in your sternum. A heart catheterization was performed to check the vessels in and around your heart, to determine if you were having a heart attack. Your vessels were found to be NORMAL. You were evaluated by cardiologists here, and it is recommended that: you continue all your medications. You can call the cardiology office for post hospital follow up visit with Dr Jackson at [phone] , please schedule this visit within 2 weeks. We recommend cardiac rehab, and a referral has been placed. Discharge Instructions: ACTIVITY RECOMMENDATIONS: Excess manipulation of the wrist should be avoided for the next 24-48 hours. * No lifting over 2 pounds (approximately a 1/2 gallon of milk) with the utilized arm for 24 hours. * No strenuous activity such as bowling or tennis for 3 days. * Keep the site of the procedure covered with a bandage for 24 hours. *You may shower the day after the procedure. Do not take a tub bath or submerge the puncture site in water for the next 3 days. *Do not operate any motorized equipment for 3 days. SPECIAL CARE INSTRUCTIONS: The site may be slightly bruised and sore following your procedure. Should any of the following occur, contact the Dr. who performed your procedure. 1. Redness/inflammation, swelling, chills, or fever, or colored drainage at procedure site within 3-7 days after your procedure. 2. Coldness, discoloration, ongoing numbness, severe pain, or swelling. Expect mild tingling of hand and tenderness at the puncture site for up to three days. If this persists beyond three days, or other symptoms develop, notify the Dr. who performed your procedure. BLEEDING: If the procedure site on your wrist begins to bleed, do not panic 1. Place 1 or 2 fingers firmly just slightly above the insertion site to stop the bleeding. You may be able to feel your pulse as you hold pressure. 2. Lift your finger after 5 minutes to see if the bleeding has stopped. 3. Once the bleeding has stopped, gently wipe the wrist area clean with a bandage. * If the bleeding from your wrist does not stop after 10 minutes, or if there is a large amount of bleeding or spurting, call 911 (do not drive yourself to the hospital). SKIN IRRITATION: * You may experience some redness and/or swelling in the area where radiation was administered. If any skin irritation occurs, please contact your family physician. FOLLOW UP VISIT: Keep any scheduled doctor appointments. Current Hospital Diet Patient's current hospital diet: AHA Diet (Heart Healthy), Diabetes Type 2 Diet Discharge Diet Recommended Diet: AHA Diet (Heart Healthy) Procedures Procedures Performed: Heart catheterization Pending Studies Studies pending at discharge: no Laboratory Results Lipid Panel Test 09/29/17 03:54 Range/Units Triglycerides Level 190 H 0-150 mg/dl Cholesterol Level 193 0-200 mg/dl HDL Cholesterol 38 mg/dl Cholesterol/HDL Ratio 5.1 LDL Cholesterol, Calculated 117 mg/dl Medical Emergencies . Who to Call and When: Medical Emergencies: If at any time you feel your situation is an emergency, please call 911 immediately. . Non-Emergent Contact Non-Emergency issues call your: Primary Care Provider, Road Repairer Call Non-Emergent contact if: your pain is not controlled, your pain is unusual for you, your pain is concerning you . . "Provider Documentation" section prepared by Yoselin Baron. .
--- NOTE | 2017-12-23 20:38 | Discharge Summary ---
Discharge Summary Date of Service Dec 23, 2017. Discharge Summary Admission Date: Dec 23, 2017 at 01:14 Discharge Date: Dec 23, 2017 Discharge Disposition: Home Principal Diagnosis: Non cardiac chest pain Problems/Secondary Diagnoses: 1) TIA 2) DM type II 3) HTN 4) GERD 5) Depression/anxiety 6) Hypothyroidism 7) Migraine headaches 8) CAD: Cardiac cath 09/2017: LM - Short, distal luminal irregularities LAD - 90% ostial LAD stenosis, 60-70% stenosis after take-off of large 1st diagonal, luminal irregularities as wraps around apex Circumflex - Dominant, luminal irregularities; 20% disease in large proximal OM1 RCA - Small, early-mid luminal irregularities. Pt underwent LAD stenting at [place] Procedures: Coronary Angiography, Left Heart Cath 13Mar Summary of Findings Indication: Suspected unstable angina Access: 6Fr right radial artery Catheters: [place] Findings: LM - Luminal irregularities LAD - Widely patent ostial to mid LAD stents, 20-30% mid segment disease distal to prior stents, luminal irregularities as wraps around apex. - Small 1st diagonal with 40-50% distal disease Circumflex - Dominant, moderate caliber, luminal irregularities, 20% in moderate caliber OM1 RCA - Non-dominant, small, luminal irregularities. LVEDP - 15 Arterial Closure: TR Band Summary: 1. Mild non-obstructive coronary artery disease - Widely patent ostial to mid LAD stents 2. Normal intracardiac filling pressure Recommendations: Evaluation for noncardiac causes of chest pain Continued ASCVD risk factor modification and DAPT. ------ Pt can call our office for post hospital follow up visit with Dr white at , visit within 2 weeks. Recommend cardiac rehab, which patient has yet to complete. Rehab referral placed. Kimberly Cotto DO Consultations: Cardiology Medication Reconciliation New Medications: Nitroglycerin (Nitrostat) 0.4 Mg/1 Tab Subl 0.4 MG SL q5min PRN for Chest Pain for 30 Days, #30 TABS Max 3 doses within 15 min. Continued Medications: Aspirin (Aspirin Ec) 81 Mg Tab 81 MG PO DAILY Atorvastatin (Lipitor) 80 Mg Tab 80 MG PO QPM Clopidogrel (Plavix) 75 Mg Tab 75 MG PO QAM, TAB Fluoxetine (Prozac) 40 Mg Cap 40 MG PO QAM, CAP total dose 50mg Fluoxetine (Prozac) 10 Mg Cap 10 MG PO QAM, CAP total dose 50mg Levothyroxine Sodium (Levothyroxine Sodium) 112 Mcg Tab 112 MG PO QAM Lorazepam (Lorazepam) 0.5 Mg Tab 0.5 MG PO Q6 PRN for Anxiety Losartan Potassium (Cozaar) 100 Mg Tab 100 MG PO DAILY, TAB Metformin Hcl Er (Glucophage Er) 500 Mg Tab 1000 MG PO QPM Metoprolol Tartrate (Lopressor) (Lopressor) 25 Mg Tab 12.5 MG PO BID Pantoprazole (Protonix) 40 Mg Tab 40 MG PO QAM, #30 TAB Solifenacin (Vesicare) 5 Mg Tab 5 MG PO QAM, TAB Topiramate (Topamax) 50 Mg Tab 50 MG PO QAM, TAB Discharge Exam Pt slept well overnight. Says chest pain is currently 2/10. Last night when she came in it was 7/10, improved with NTG. States the pain has been intermittent, usually at night, over the past week. Is progressive, central pain radiating to the right shoulder. Has not yet made use of her nitrostat tabs prescribed to her since her stent placement in September. Has seen car rental deliverer Manuel laguerre since then. Was not aware that she was to use her nitrostat tab for this pain, she thought you would use it for more severe pain, more like her last event. So while the quality of the pain is similar, the severity is less. Denies SOB, blurred vision, abdominal upset, dyspepsia, fevers chills. ROS See HPI for pertinent positives and negatives. PE GENERAL: Awake, alert, in no distress EYES: Normal conjunctiva. Sclera non-icteric. RESPIRATORY: Clear to auscultation. CARDIAC: Regular rate, normal rhythm. Extremities warm and well perfused. Pulses equal. Neg for carotid bruits ABDOMEN: Soft, non-distended. No tenderness to palpation. No rebound or guarding. No masses. MUSCULOSKELETAL: Chest examination reveals no tenderness. The back is symmetrical on inspection without obvious abnormality. LOWER EXTREMITIES: Calves are equal size bilaterally and non-tender. No edema. No discoloration. NEURO: No motor deficits noted. SKIN: No rash or jaundice noted. Hospital Course 67F admitted for substernal chest pain -- found to be non-cardiac in origin. Provided education, and referral for cardiac rehab which patient has yet to schedule. PMH: TIA, DM type II, HTN, GERD, Depression/anxiety, Hypothyroidism, Migraine headaches, CAD Chest pain rule out - troponins negative x3. EKG performed 12/22/17 revealed normal sinus rhythm with first-degree AV block compared to the prior tracing dated 09/29/17 the T- wave inversions in the anterolateral leads are less pronounced with subtle residual T-wave inversion limited to lead aVL and V2. Cardiology consulted -- cardiac catheterization with mild atherosclerosis, non-occlusive as above. Continue all other home medications. Nitrostat not present on pt's home med list, script sent. Total Time Spent: Greater than 30 minutes This includes examination of the patient, discharge planning, medication reconciliation, and communication with other providers. Discharge Instructions Please refer to the electronic Patient Visit Report (Discharge Instructions) for additional information. Additional Copies To Landon Alvarez D.O. Reviewed: Pt Seen/Exam by Me Constitutional: denies: fever Respiratory: negative: short of breath Cardiovascular: denies chest pain General Appearance: no apparent distress Respiratory: lungs clear, no respiratory distress Cardiovascular: regular rate, rhythm Neurologic/Psychiatric: alert, oriented x 3 Skin Characteristics: warm/dry Assessment/Plan Resident Physician Supervision Note: I independently interviewed and examined the patient and verified the cuevas history and physical, reviewed labs and image studies, discussed the case with the resident Dr. Baron and agree with the findings and care plan. Time spent in discharge 35 min
[2017-12-23] MEDS ORDERED: ATORVASTATIN 40 MG TAB PO SCH (21:00)
== END 2017-12-23 21:10 | disposition home or self-care (01) ==
LOC: C.EDB 22:20 → C.2E 12-23 01:14 → ENRESERV 12-23 01:19
PROVIDERS: ADMIT Internal Medicine; ATTEND Family Medicine
DX: R07.89 Other chest pain (principal); I10 Essential (primary) hypertension; E11.9 Type 2 diabetes mellitus without complications; F32.9 Major depressive disorder, single episode, unspecified; E03.9 Hypothyroidism, unspecified; I25.10 Atherosclerotic heart disease of native coronary artery without angina pectoris; E78.5 Hyperlipidemia, unspecified; Z79.82 Long term (current) use of aspirin; Z87.891 Personal history of nicotine dependence; Z88.5 Allergy status to narcotic agent; Z88.1 Allergy status to other antibiotic agents; Z82.49 Family history of ischemic heart disease and other diseases of the circulatory system

== ENCOUNTER 2020-05-02 10:00 | Observation (INO) ==
--- OUTSIDE RECORDS SUMMARY | 2020-05-02 10:02 | External Medical Summary | Continuity of Care Document ---
:1950 Author Name Ynes Archer, Provider Address Unavailable Unavailable , Care Team Providers Name Role Phone Josué Reyes [email or web address] PCP, UNKNOWN Unavailable Unavailable Problems Active medical history not documented Allergies and Adverse Reactions Allergy history not documented Medications Medications not documented Procedures Procedures not documented Immunizations Immunizations not documented Plan of Treatment Planned Observations Planned Goals not documented Results No Known Results Results not documented
[2020-05-02] MEDS ORDERED: ALUMINUM/MAGNESIUM SUSP 30 ML UDC PO STA (10:06)
[2020-05-02] MEDS ORDERED: ASPIRIN CHEW 324 MG PO STA (10:06)
[2020-05-02] MEDS ORDERED: ONDANSETRON INJ 2 MG/ML 2 ML VIAL IV STA (10:06)
--- NOTE | 2020-05-02 10:21 | Emergency Department Note ---
Impression & Plan Chest pain ED Provider Note NAME: CHARLES SADLER AGE: 70 SEX: F : 1950 ARRIVES VIA: Walk-In INFORMANT: Patient, ED PROVIDER(S): Alan Babcock DO CHIEF COMPLAINT: Chest pain HPI: The patient is a 70-year-old female who presented to the emergency department for an evaluation of chest discomfort. The patient was having right- sided chest pain which radiated to her right arm. She states she also had nausea and felt very weak. She states this occurred this morning while she was getting ready for work. She took 2 nitroglycerin because she felt that this pain was similar to pain she has had in the past with angina. The patient states that the nausea has improved but her chest pain continues. She denies having any shortness of breath but does complain of lower extremity swelling. The pain does not radiate to the back. She states the pain does not radiate to the neck. The pain is not worsened with position. She is not had any cough or fever recently. She did not see her primary care physician for these com plaints. She was concerned because of her previous cardiac history and the similarities of the pain. ROS: See above HPI for pertinent positives & negatives. A total of 10 systems reviewed and were otherwise negative. PAST MEDICAL HISTORY: See Below PAST SURGICAL HISTORY: See Below FAMILY HISTORY: See Below SOCIAL HISTORY: See Below HOME MEDICATIONS: See Below ALLERGIES: See Below VITALS: See Below PHYSICAL EXAMINATION: GENERAL: The patient is awake and alert. She is very anxious appearing. EYES: The conjunctivae are clear. The pupils are round and reactive. EARS, NOSE, MOUTH AND THROAT: The nose is without any evidence of any deformity. Mucous membranes are moist. NECK: The neck is nontender and supple. RESPIRATORY: Normal respiratory effort is noted there is no evidence of wheezing rhonchi or rales CARDIOVASCULAR: Regular rate and rhythm noted there no murmurs rubs or gallops normal S1 normal S2. GASTROINTESTINAL: The abdomen is soft. Abdomen is nontender. MUSCULOSKELETAL/EXTREMITIES: There is no evidence of gross deformity full range of motion is noted in the hips and shoulders. SKIN: There is no obvious evidence of any rash. There are no petechiae, pallor or cyanosis noted. NEUROLOGIC: Patient is awake alert and oriented x3. MEDICAL DECISION MAKING: The patient is a 70-year-old female who presented to the emergency department for an evaluation of chest pain. The patient describes right-sided chest pain with radiation to the right arm. She states that she has had similar symptoms in the past. 2 years ago she had similar symptoms and required cardiac catheterization and stenting. At this time her pain is improving. She received aspirin in the emergency department. I discussed the patient's laboratory and radiographic studies with her. I also discussed the limitations of the emerge ncy department work-up for chest pain with her. At this time she does appear to have a very elevated heart score above the level that I would feel comfortable with an outpatient work-up. For this reason I will [facility] The patient was agreeable to this plan. Triage Nursing notes reviewed. Prior medical records reviewed Vital Signs: reviewed and remarkable for elevated blood pressure. Differential diagnosis: Cardiac ischemia, aortic dissection, pulmonary embolism, pneumothorax, pneumonia, pericarditis, myocarditis, esophageal rupture, GERD, cholecystitis, pancreatitis, musculoskeletal, as well as other pathologies. ER treatment provided: See below Diagnostics interpreted by me: ECG: EKG was obtained in the emergency department. My interpretation is sinus rhythm at 65 bpm. First-degree AV block was noted. Diffuse ST segment depressions were noted. There is no ectopy. This was compared to a tracing from June 092017. No significant changes were noted. Cardiac Monitoring: An order was placed for continuous cardiac monitoring. The monitor shows a rate of 85 with sinus rhythm. Laboratory studies: As stated above and show below. Imaging studies: See below Consultation(s): 1140: I discussed this case with Nova who [facility] They will evaluate the patient in the emergency department for further management and disposition. ED COURSE: Procedures: none Critical Care: None Past Med/Surg History Medical History Anemia Anxiety Cancer BCC -- REMOVED Depression Diabetes mellitus, type 2 Fatty liver GERD (gastroesophageal reflux disease) Hearing deficit History of thyroid nodule Hyperlipidemia Hypertension Hypothyroidism Myocardial Infarction 09/2017 - [facility] --> [place] --> [employer] - 2 STENTS PLACED - FOLLOWS W/ DR. LEDEZMA Spinal stenosis Temporomandibular joint disorder Transient ischemic attack (TIA) MULTIPLE - LAST IN 2003 Surgical History History of cardiac cath 09/2017 - [place] - [place] - 2 STENTS PLACED - FOLLOWS W/ DR. LEDEZMA History of cataract surgery LEFT History of cholecystectomy History of colonoscopy History of esophagogastroduodenoscopy (EGD) History of heart artery stent X 2 History of herniorrhaphy UMBILICAL History of partial thyroidectomy History of repair of rotator cuff RT History of surgery SURGERY TO URETER "SHORTENING OF URETER R/T ADHESIONS" History of tonsillectomy Nausea and vomiting after administration of anesthetic agent Status post TRACY-BSO Family History Mother Family history of diabetes mellitus Brother Family history of diabetes mellitus Social History Smoking Status: Former smoker Second Hand Exposure: No; Hx Alcohol Use: No Hx Substance Use: No Preferred Language: Estonian Communication Ability: Effective Tie Knitter Helper Required: No Beliefs That Will Affect Care: None Current Living Situation: Alone Other Information That Helps Us Care for You: No Feels Safe at Home: Yes Safety Concerns: Feels Safe At This Time Allergies Allergies Allergy/AdvReac Type Severity Reaction Status Date / Time oxycodone Allergy Intermediate NUMBNESS Verified 10/21/18 06:47 OF FACE CHASIDY Inhibitors Allergy Unknown UNKNOWN Verified 10/21/18 06:47 caffeine Allergy Unknown GI SYMPTOMS Verified 10/21/18 06:47 codeine Allergy Unknown GI SYMPTOMS Verified 10/21/18 06:47 levofloxacin Allergy Unknown HEADACHE, Verified 10/21/18 06:47 itchy eyes Home Meds Home Medications Medication Instructions Recorded Confirmed aspirin 81 mg PO DAILY 08/10/18 05/02/20 atorvastatin 80 mg PO DAILY 08/10/18 05/02/20 baclofen 10 mg PO BID PRN 08/10/18 05/02/20 clopidogrel [Plavix] 75 mg PO DAILY 08/10/18 05/02/20 fluoxetine [Prozac] 40 mg PO DAILY 08/10/18 05/02/20 fluticasone propionate [Flonase 2 spray INTRANASAL DAILY 08/10/18 05/02/20 Allergy Relief] levothyroxine 112 mcg PO DAILY 08/10/18 05/02/20 loratadine [Claritin] 10 mg PO HS 08/10/18 05/02/20 lorazepam [Ativan] 0.5 mg PO BID PRN 08/10/18 05/02/20 losartan [Cozaar] 50 mg PO DAILY 08/10/18 05/02/20 metformin 500 mg PO DAILY 08/10/18 05/02/20 metoprolol succinate 12.5 mg PO BID 08/10/18 05/02/20 nitroglycerin [Nitrostat] 1 dose SUBLINGUAL UD PRN 08/10/18 05/02/20 pantoprazole [Protonix] 40 mg PO DAILY 08/10/18 05/02/20 buspirone 30 mg PO BID 05/02/20 05/02/20 linagliptin [Tradjenta] 5 mg PO DAILY 05/02/20 05/02/20 tolterodine 2 mg PO DAILY 05/02/20 05/02/20 Previous Rx's Medication Instructions Recorded difluprednate [Durezol] 1 drops OP .every three hours #5 ml 10/21/18 Results & Data (ED) Vital Signs Vital Signs - 24 hr 05/02/20 10:02 05/02/20 10:44 05/02/20 10:48 Temperature 36.8 C Temperature Source Oral Pulse Rate 67 61 64 Pulse Rate from SpO2 Sensor 62 61 Respiratory Rate 18 18 16 Respiratory Depth Normal Blood Pressure 162/71 H 143/70 H Blood Pressure Mean 101 90 Pulse Oximetry 99 96 97 Oxygen Delivery Method Room Air Room Air Sepsis Recent Fever Within 48 Hours No Sepsis New/Unexplained Change in Mental Status N/A Sepsis Action Taken by Nursing No Action Required 05/02/20 11:00 Temperature Temperature Source Pulse Rate 59 L Pulse Rate from SpO2 Sensor 59 L Respiratory Rate 18 Respiratory Depth Blood Pressure 141/74 H Blood Pressure Mean 107 Pulse Oximetry 96 Oxygen Delivery Method Sepsis Recent Fever Within 48 Hours Sepsis New/Unexplained Change in Mental Status Sepsis Action Taken by Snf Medications Current Medication List: was personally reviewed by me Laboratory Data Attestation: I reviewed the patient's lab results. Result diagrams: 05/02/20 10:25 05/02/20 10:25 Lab Results 05/02/20 05/02/20 05/02/20 Range/Units 10:25 10:25 10:25 WBC 6.58 (4.8-10.8) K/uL RBC 4.40 (4.2-5.4) M/uL Hgb 11.5 L (12.0-16.0) g/dL Hct 36.2 L (37-47) % MCV 82.3 (80-100) fL MCH 26.1 (25-34) pg MCHC 31.8 L (32-36) g/dL RDW Std Deviation 45.3 (36.4-46.3) fL RDW Coeff of Vidya 15.2 H (11.5-14.5) % Plt Count 226 (130-400) K/uL MPV 9.7 (7.4-10.4) fL Immature Gran % (Auto) 1.1 % Neut % (Auto) 66.4 % Lymph % (Auto) 23.9 % [place] % (Auto) 5.6 % Eos % (Auto) 2.7 % Baso % (Auto) 0.3 % Neut # (Auto) 4.37 (1.4-6.5) K/uL Lymph # (Auto) 1.57 (1.2-3.4) K/uL [place] # (Auto) 0.37 (0.11-0.59) K/uL Eos # (Auto) 0.18 (0-0.5) K/uL Baso # (Auto) 0.02 (0-0.2) K/uL Immature Gran # (Auto) 0.07 H (0.00-0.02) K/uL PT 10.1 (9.0-12.0) Seconds INR 1.0 (0.9-1.1) APTT 23.4 (21.0-31.0) Seconds PTT Ratio 0.8 Sodium 142 (136-145) mmol/L Potassium 4.1 (3.5-5.1) mmol/L Chloride 110 H (98-107) mmol/L Carbon Dioxide 27 (21-32) mmol/L Anion Gap 5.0 (3-11) BUN 15 (7-18) mg/dl Creatinine 0.95 (0.6-1.2) mg/dl Est Cr Clr Drug Dosing 61.1 ml/min Est GFR ( Amer) 69.4 Est GFR (Non-Af Amer) 59.8 BUN/Creatinine Ratio 15.8 (10-20) Glucose 124 H (70-99) mg/dl Calcium 8.6 (8.5-10.1) mg/dl Total Bilirubin 0.2 (0.2-1) mg/dl AST 21 (15-37) U/L ALT 42 (12-78) U/L Alkaline Phosphatase 74 (45-117) U/L Troponin I < 0.015 (0-0.045) ng/ml Total Protein 6.5 (6.4-8.2) gm/dl Albumin 3.3 L (3.4-5.0) gm/dl Globulin 3.2 (2.5-4.0) gm/dl Albumin/Globulin Ratio 1.0 (0.9-2) Lipase 211 (73-393) U/L Administered Medications Discontinued Medications Al Hydrox/Mg Hydrox/Simethicone (Maalox) 30 ml PO NOW STA Stop: 05/02/20 10:07 Last Admin: 05/02/20 10:44 Dose: 30 ml Documented by: [id number] Aspirin (Aspirin) 324 mg PO NOW STA Stop: 05/02/20 10:07 Last Admin: 05/02/20 10:44 Dose: 324 mg Documented by: [id number] Ondansetron HCl (Zofran) 4 mg IV NOW STA Stop: 05/02/20 10:07 Last Admin: 05/02/20 10:44 Dose: 4 mg Documented by: [id number] Imaging Data Radiologist's Impression: XR chest 1V portable HISTORY: 70 years-old Female Chest Pain acute atypical chest pain COMPARISON: Chest radiograph 06/07/2018 TECHNIQUE: Portable AP view of the chest FINDINGS: Cardiac silhouette is enlarged. Moderate diaphragmatic elevation. No pneumothorax, pleural effusion, airspace consolidation or overt pulmonary edema. Bones appear grossly intact. Metallic surgical anchor of the right greater tuberosity. IMPRESSION: Cardiomegaly without acute process. ACT 112: Negative or not required by law. The above report was generated using voice recognition software. It may contain grammatical, syntax or spelling errors. Electronically signed by: Thien Olea M.D. 05/02/2020 10:44 AM Dictated: 05/02/20 1044 Transcribed: 05/02/20 1044 Blood Pressure Blood Pressure Findings: Elevated blood pressure Blood Pressure Disposition: further management by hospitalist Discharge Plan Visit Data Chief Complaint: Chest Pain Stated Complaint: CHEST PAIN ED Provider: Alan Babcock Discharge Problem: Chest pain Patient Disposition: Being Evaluated by Hospitalist Condition: Good Forms Stand Alone Forms: My [facility] Prescriptions Prescriptions: No Action metformin 500 mg Tablet 500 mg PO DAILY RF: 0 atorvastatin 80 mg Tablet 80 mg PO DAILY RF: 0 clopidogrel [Plavix] 75 mg Tablet 75 mg PO DAILY RF: 0 lorazepam [Ativan] 0.5 mg Tablet 0.5 mg PO BID PRN (Reason: Anxiety) RF: 0 baclofen 10 mg Tablet 10 mg PO BID PRN (Reason: MUSCLE SPASMS) RF: 0 pantoprazole [Protonix] 40 mg Tablet,Delayed Release (Dr/Ec) 40 mg PO DAILY RF: 0 nitroglycerin [Nitrostat] 0.4 mg Tablet, Sublingual 1 dose Sublingual UD PRN (Reason: Chest Pain) RF: 0 aspirin 81 mg Tablet,Chewable 81 mg PO DAILY RF: 0 metoprolol succinate 25 mg Tablet Extended Release 24 Hr 12.5 mg PO BID RF: 0 losartan [Cozaar] 100 mg Tablet 50 mg PO DAILY RF: 0 fluoxetine [Prozac] 20 mg Capsule 40 mg PO DAILY RF: 0 fluticasone propionate [Flonase Allergy Relief] 50 mcg/actuation [place],Suspension 2 spray INTRANASAL DAILY RF: 0 loratadine [Claritin] 10 mg Tablet 10 mg PO HS RF: 0 levothyroxine 112 mcg Tablet 112 mcg PO DAILY RF: 0 buspirone 30 mg tablet 30 mg PO BID RF: 0 Tradjenta 5 mg tablet 5 mg PO DAILY RF: 0 tolterodine 2 mg capsule,extended release 24hr 2 mg PO DAILY RF: 0 Durezol 0.05 % drops 1 drops OP .every three hours Qty: 5 RF: 0 Referrals Referrals: Bibiana Agudelo MD [Primary Care Provider] - Discharge Problem: Chest pain Qualifiers: Chest pain type: unspecified Qualified Code(s): R07.9 - Chest pain, unspecified
[2020-05-02 10:39] LABS: Basophils # (auto) 0.02 K/uL (0-0.2); Basophils % (auto) 0.3 %; Eosinophils # (auto) 0.18 K/uL (0-0.5); Eosinophils % (auto) 2.7 %; Hematocrit (blood only) 36.2 % (37-47); Hemoglobin 11.5 g/dL (12.0-16.0); Immature Granulocytes # (auto) 0.07 K/uL (0.00-0.02); Immature Granulocytes % (auto) 1.1 %; Lymphocytes # (auto) 1.57 K/uL (1.2-3.4); Lymphocytes % (auto) 23.9 %; Mean Corpuscular Hemoglobin 26.1 pg (25-34); Mean Corpuscular Hgb Conc 31.8 g/dL (32-36); Mean Corpuscular Volume 82.3 fL (80-100); Mean Platelet Volume 9.7 fL (7.4-10.4); Monocytes # (auto) 0.37 K/uL (0.11-0.59); Monocytes % (auto) 5.6 %; Neutrophils # (auto) 4.37 K/uL (1.4-6.5); Neutrophils % (auto) 66.4 %; Platelet Count 226 K/uL (130-400); RDW Coefficient of Variation 15.2 % (11.5-14.5); RDW Standard Deviation 45.3 fL (36.4-46.3); White Blood Count 6.58 K/uL (4.8-10.8)
--- NOTE | 2020-05-02 10:46 | XRay Report ---
XR chest 1V portable HISTORY: 70 years-old Female Chest Pain acute atypical chest pain COMPARISON: Chest radiograph 06/07/2018 TECHNIQUE: Portable AP view of the chest FINDINGS: Cardiac silhouette is enlarged. Moderate diaphragmatic elevation. No pneumothorax, pleural effusion, airspace consolidation or overt pulmonary edema. Bones appear grossly intact. Metallic surgical ancho r of the right greater tuberosity. IMPRESSION: Cardiomegaly without acute process. ACT 112: Negative or not required by law. The above report was generated using voice recognition software. It may contain grammatical, syntax o r spelling errors. Electronically signed by: Thien Olea M.D. 05/02/2020 10:44 AM
[2020-05-02 10:50] LABS: Partial Thromboplastin Ratio 0.8; Partial Thromboplastin Time 23.4 Seconds (21.0-31.0); Prothrombin Time 10.1 Seconds (9.0-12.0)
[2020-05-02 10:59] LABS: Alanine Aminotransferase 42 U/L (12-78); Albumin Level 3.3 gm/dl (3.4-5.0); Aspartate Aminotransferase 21 U/L (15-37); BUN Creatinine Ratio 15.8 (10-20); Blood Urea Nitrogen 15 mg/dl (7-18); Calcium 8.6 mg/dl (8.5-10.1); Carbon Dioxide 27 mmol/L (21-32); Chloride 110 mmol/L (98-107); Creatinine Clr Calc Pharmacy 61.1 ml/min; Est GFR (African American) 69.4; Est GFR (Non-African American) 59.8; Glucose 124 mg/dl (70-99); Lipase 211 U/L (73-393); Potassium 4.1 mmol/L (3.5-5.1); Sodium 142 mmol/L (136-145)
[2020-05-02 11:04] LABS: Alkaline Phosphatase 74 U/L (45-117); Bilirubin,Total 0.2 mg/dl (0.2-1); Globulin 3.2 gm/dl (2.5-4.0); Total Protein 6.5 gm/dl (6.4-8.2); Troponin I < 0.015 ng/ml (0-0.045)
--- NOTE | 2020-05-02 12:20 | History & Physical Report ---
Date of Service May 02, 2020 Assessment & Plan (1) Chest pain: This is a 70-year-old female who has significant past medical history of CAD with history of PCI in 2018 with 2 GLORIA to ostial and mid LAD, T2DM, HTN, CKD stage III, hypothyroidism, who presents to ED secondary to right-sided chest pain x5 hours. Chest pain appears reproducible, possible musculoskeletal component. Given significant cardiac history will admit under observation to rule out ACS. Admit to telemetry Cycle troponin Obtain echocardiogram, last 06/08/2018 revealed EF 55 to 60%, grade 1 diastolic dysfunction, mild to moderate MR last cath 2018 - as documented below repeat ekg pt offered warm compress to R chest wall, but declined received Maalox in ED without improvement (2) CAD (coronary artery disease): hx of chronic coronary artery disease, NSTEMI 09/28/17 ultimately treated with 2 drug-eluting stents to the ostial and mid left anterior descending artery repeat cath 12/2017: Widely patent ostial and mid LAD stents with a 20 to 30% mid segment disease and 40 to 50% distal 1st diagonal branch vessel disease. The remaining coronary arteries demonstrated 20% obtuse marginal branch vessel disease and mild luminal irregularities of the RCA. Follows Dr. Ledezma on ASA, statin, metoprolol and losartan as outpt as above (3) DM type 2 (diabetes mellitus, type 2): Last A1c 6.2 on 01/18/2020 Repeat A1c in a.m. Hold metformin and Tradjenta NovoLog per protocol (4) Hypertension: Blood pressure stable Continue metoprolol, losartan (5) Hypothyroidism: Continue levothyroxine (6) DVT prophylaxis: SQ Heparin Disposition: admit to telemetry Follow-up: PCP Dr. Agudelo upon discharge Patient was seen and examined in collaboration with Dr. Paris, please see addendum History of Present Illness Chief Complaint: Right-sided chest pain x5 hours. Primary Care Provider: Bibiana Agudelo MD This is a 70-year-old female who has significant past medical history of CAD with history of PCI in 2018 with 2 GLORIA to ostial and mid LAD, T2DM, HTN, CKD stage III, hypothyroidism, who presents to ED secondary to right-sided chest pain x5 hours. Symptoms started at approximately 8 AM at resting position. It occurred shortly after eating oatmeal and decaf coffee. Did not feel like reflux. Pain came on abruptly, described as sharp, rated as a 8 out of 10, tried nitro without relief and was associated with radiation to right shoulder and dry heaving. She denies any associated shortness of breath, palpitations, lightheadedness, dizziness, diaphoresis or loreto emesis. She has had similar episodes in the past in relation to her coronary artery disease, although previously she did not experience dry heaving. She denies any recent heavy lifting, twisting or trauma. She was very concerned and opted to present to ED. In ED she received ASA 325 and pain is now rated as a 4 out of 10 but is still present. It is made slightly worse with deep breathing as well as touching, but is not affected by position. She denies any recent illness, fever, chills, sweats, syncope, abdominal pain, diarrhea, melena, medic easier, dysuria, increased urgency or frequency with urination. She has no known sick contacts and denies any COVID-19 exposure. Denies any loss of taste or smell. Appetite is otherwise been normal. She had been compliant with her medications, but did not take her morning meds today. In ED she remained hemodynamically stable. Her initial troponin and EKG were otherwise unremarkable. She did receive full-strength aspirin. Lab work was generally unremarkable except for mild hyperglycemia. Chest x-ray revealed cardiomegaly but no overt acute abnormality. Allergies Allergy/AdvReac Type Severity Reaction Status Date / Time oxycodone Allergy Intermediate NUMBNESS Verified 10/21/18 06:47 OF FACE CHASIDY Inhibitors Allergy Unknown UNKNOWN Verified 10/21/18 06:47 caffeine Allergy Unknown GI SYMPTOMS Verified 10/21/18 06:47 codeine Allergy Unknown GI SYMPTOMS Verified 10/21/18 06:47 levofloxacin Allergy Unknown HEADACHE, Verified 10/21/18 06:47 itchy eyes Home Medications Home Medications Medication Instructions Recorded Confirmed Type aspirin 81 mg PO DAILY 08/10/18 05/02/20 History atorvastatin 80 mg PO DAILY 08/10/18 05/02/20 History baclofen 10 mg PO BID PRN 08/10/18 05/02/20 History clopidogrel [Plavix] 75 mg PO DAILY 08/10/18 05/02/20 History fluoxetine [Prozac] 40 mg PO DAILY 08/10/18 05/02/20 History fluticasone propionate [Flonase 2 spray INTRANASAL DAILY 08/10/18 05/02/20 History Allergy Relief] levothyroxine 112 mcg PO DAILY 08/10/18 05/02/20 History loratadine [Claritin] 10 mg PO HS 08/10/18 05/02/20 History lorazepam [Ativan] 0.5 mg PO BID PRN 08/10/18 05/02/20 History metformin 1,000 mg PO BID 08/10/18 05/02/20 History nitroglycerin [Nitrostat] 1 dose SUBLINGUAL UD PRN 08/10/18 05/02/20 History pantoprazole [Protonix] 40 mg PO DAILY 08/10/18 05/02/20 History difluprednate [Durezol] 1 drops OP .every three hours #5 ml 10/21/18 05/02/20 Rx buspirone 30 mg PO BID 05/02/20 05/02/20 History linagliptin [Tradjenta] 5 mg PO DAILY 05/02/20 05/02/20 History losartan 25 mg PO DAILY 05/02/20 05/02/20 History metoprolol tartrate 12.5 mg PO BID 05/02/20 05/02/20 History tolterodine 2 mg PO DAILY 05/02/20 05/02/20 History Past Med/Surg History Medical History Anemia Anxiety Cancer [facility] -- REMOVED Depression Diabetes mellitus, type 2 Fatty liver GERD (gastroesophageal reflux disease) Hearing deficit History of thyroid nodule Hyperlipidemia Hypertension Hypothyroidism Myocardial Infarction 09/2017 - [facility] [place] --> [place]ERC[place] - 2 STENTS PLACED - FOLLOWS W/ DR. LEDEZMA Spinal stenosis Temporomandibular joint disorder Transient ischemic attack (TIA) MULTIPLE - LAST IN 2003 Surgical History History of cardiac cath 09/2017 - [facility] - 2 STENTS PLACED - FOLLOWS Karen/ DR. LEDEZMA History of cataract surgery LEFT History of cholecystectomy History of colonoscopy History of esophagogastroduodenoscopy (EGD) History of heart artery stent X 2 History of herniorrhaphy UMBILICAL History of partial thyroidectomy History of repair of rotator cuff RT History of surgery SURGERY TO URETER "SHORTENING OF URETER R/T ADHESIONS" History of tonsillectomy Nausea and vomiting after administration of anesthetic agent Status post TRACY-BSO Family History Mother Family history of diabetes mellitus Brother Family history of diabetes mellitus Social History Smoking Status: Former smoker Second Hand Exposure: No; Hx Alcohol Use: No Hx Substance Use: No Preferred Language: Setswana Communication Ability: Effective Service Sprinkler Helper Required: No Beliefs That Will Affect Care: None Current Living Situation: Alone Other Information That Helps Us Care for You: No Feels Safe at Home: Yes Safety Concerns: Feels Safe At This Time Review of Systems Review of Systems: All systems reviewed & are unremarkable except as noted in HPI & below Physical Exam Physical Exam: Constitutional: WD/WN, vitals as above, NAD, sitting up in bed, pleasant, conversing easily Head: Normocephalic, Atraumatic Eyes: PERRL, conjunctivae normal, anicteric sclerae ENMT: external ear and nose normal, oropharynx normal Neck: trachea midline, no thyromegaly normal visual inspection Respiratory: normal respiratory effort, lungs clear to auscultation, no wheeze, rales, rhonchi. Normal insp/exp effort, no accessory muscle use Cardiovascular: RRR, no murmur, no edema Vessels: no JVD or carotid bruit Chest: normal inspection of chest, pain to palpation to right chest wall, pain appeared reproducible Abdomen: normal bowel sounds, soft, nontender, no hepatosplenomegaly Musculoskeletal: no cyanosis or clubbing, extremities motor strength 5/5 Skin: no rashes, warm and dry normal turgor Neurologic: PERRL, EOMI, accommodation nl, no face palsy, no dysarthria CN's II-XI intact bilaterally and moves all extremities Psychiatric: A+Ox3, euthymic affect Lymphatic: no cervical or axillary lymphadenopathy : deferred Results & Data Results & Data ([facility]) Vital Signs (Past 12 Hours) Vital Signs Temp Pulse Resp BP Pulse Ox 05/02/20 11:00 59 L 18 141/74 H 96 05/02/20 10:48 64 16 97 05/02/20 10:44 61 18 143/70 H 96 05/02/20 10:02 36.8 C 67 18 162/71 H 99 Laboratory Results Short CBC 05/02/20 Range/Units 10:25 WBC 6.58 (4.8-10.8) K/uL Hgb 11.5 L (12.0-16.0) g/dL Hct 36.2 L (37-47) % Plt Count 226 (130-400) K/uL BMP 05/02/20 10:25 Sodium 142 Potassium 4.1 Chloride 110 H Carbon Dioxide 27 BUN 15 Creatinine 0.95 Glucose 124 H Calcium 8.6 Cardiac Enzymes 05/02/20 Range/Units 10:25 Troponin I < 0.015 (0-0.045) ng/ml Liver Function 05/02/20 Range/Units 10:25 Total Bilirubin 0.2 (0.2-1) mg/dl AST 21 (15-37) U/L ALT 42 (12-78) U/L Alkaline Phosphatase 74 (45-117) U/L Albumin 3.3 L (3.4-5.0) gm/dl Diagnostic Findings CXR: IMPRESSION: Cardiomegaly without acute process. Medications Administered Discontinued Medications Al Hydrox/Mg Hydrox/Simethicone (Maalox) 30 ml PO NOW STA Stop: 05/02/20 10:07 Last Admin: 05/02/20 10:44 Dose: 30 ml Documented by: [id number] Aspirin (Aspirin) 324 mg PO NOW STA Stop: 05/02/20 10:07 Last Admin: 05/02/20 10:44 Dose: 324 mg Documented by: [id number] Ondansetron HCl (Zofran) 4 mg IV NOW STA Stop: 05/02/20 10:07 Last Admin: 05/02/20 10:44 Dose: 4 mg Documented by: [id number] ECG Rate (beats per minute): 65 Rhythm: normal sinus Findings: + 1st degree AV block Code Status & VTE Plan Code Status Full Code VTE Prophylaxis Plan VTE Prophylaxis will be ordered: Yes Supervising Physician Co-Signing Physician Notes Patient is a 70-year-old female with history of coronary artery disease, CKD stage III, hypothyroidism, diabetes and other medical problems presents with hi story of sudden onset of right-sided/Retrosternal chest pain was started at about 8 AM this morning lasting for about 5 hours. Chest pain is sharp, 8/10, not relieved by nitro and radiated to right shoulder associated with nausea. She received aspirin in ED which slightly improved her chest discomfort. Please review HPI for complete details of presentation. On exam patient is moderately built and nourished, no apparent distress, normocephalic atraumatic, lungs are clear to auscultation, chest--reproducible tenderness on right side, S1-S2, no murmur, 1+ bilateral lower extremity edema, abdomen soft, nontender, number normal bowel sounds, alert awake and oriented, no focal deficits. Patient is admitted for management of chest pain rule ACS. Initial troponin negative. EKG showed no signs of acute ischemia. Will trend cardiac enzymes, check resting echo, will repeat EKG in the morning. Consulted cardiology. Likely musculoskeletal in origin given atypical presentation. Continue aspirin, statin, Plavix, metoprolol. I personally reviewed the record. Patient is interviewed and examined at bedside. Patient's care is coordinated with Nova Dang PA-C. Please refer to the documentation above for details of patient's presentation and for discussion of other issues. (1) Chest pain Chest pain type: unspecified Qualified Code(s): R07.9 - Chest pain, unspecified
[2020-05-02] MEDS ORDERED: DEXTROSE 50% 50 ML SYRINGE IV PRN (12:49)
[2020-05-02] MEDS ORDERED: GLUCOSE 10 TABS/TUBE PO PRN (12:49)
[2020-05-02] MEDS ORDERED: POLYETHYLENE (MIRALAX) 17 GM PACK PO PRN (12:49)
[2020-05-02] MEDS ORDERED: ALUMINUM/MAGNESIUM SUSP 30 ML UDC PO PRN (12:49)
[2020-05-02] MEDS ORDERED: MAGNESIUM HYDROXIDE SUSP 30 ML UDC PO PRN (12:49)
[2020-05-02] MEDS ORDERED: CARBOHYDRATES FOR HYPOGLYCEMIA PO PRN (12:49)
[2020-05-02] MEDS ORDERED: GLUCAGON FOR INJ 1 MG VIAL SQ PRN (12:49)
[2020-05-02] MEDS ORDERED: GLUCOSE 40% GEL 15 GM TUBE PO PRN (12:49)
[2020-05-02] MEDS ORDERED: ONDANSETRON INJ 2 MG/ML 2 ML VIAL IV PRN (12:49)
--- NOTE | 2020-05-02 13:42 | Electrocardiogram Report ---
Test Reason : Blood Pressure : / mmHG Vent. Rate : 065 BPM Atrial Rate : 065 BPM P-R Int : 222 ms QRS Dur : 074 ms QT Int : 416 ms P-R-T Axes : 049 -17 065 degrees QTc Int : 432 ms Sinus rhythm with 1st degree A-V block Otherwise normal ECG When compared with ECG of 09-JUN-2018 06:38, No significant change was found Confirmed by Alan Brooke ([id number]) on 05/02/2020 1:41:47 PM Referred By: REFERRED SELF Confirmed By:Alan Brooke
[2020-05-02] MEDS ORDERED: BACLOFEN 10 MG TAB PO PRN (13:55)
[2020-05-02] MEDS ORDERED: LORazepam 0.5 MG TAB PO PRN (13:55)
--- NOTE | 2020-05-02 14:18 | Cardiology Consultation ---
Date of Consultation May 02, 2020 Assessment & Plan (1) Chest pain: (2) CAD (coronary artery disease): (3) Hypertension: (4) DM type 2 (diabetes mellitus, type 2): While her chest pain is reproducible suggesting somatic dysfunction she does state that this is similar to her anginal equivalent. For completeness sake given her history of coronary artery disease as well as diabetes I do believe further ischemic work-up is warranted at this time. Her troponin will be trended overnight and we will perform a dobutamine stress echocardiogram in the a.m. She should be continued on her current outpatient medical regimen. I will order ibuprofen, lidocaine cream and heating pad for her discomfort History of Present Illness Reason for Consultation: chest pain Requesting Physician: Dr. Grewal Attending Physician: Jw Paris MD History of Present Illness Ms. Pastor is a 70-year-old woman who routinely follows with Dr. Bustillo of our cardiology practice who presented to [facility] on 05/02/2020 with complaints of chest pain. She states that she woke up this morning with severe right-sided chest pain. She described the pain as very sharp in nature and very tender to the touch. She denies any recent trauma to her chest nor does she believes she slept on her right side abnormally last night. She states that she has been compliant with her medications as an outpatient. She states that she thinks this chest pain is similar to the discomfort she had prior to LAD stenting in the past. Upon arrival to the emergency department her pain was found to be somewhat reproducible. EKG and troponin were unremarkable and she was admitted to telemetry. She states that her pain is still rather significant. She denies any associated shortness of breath, radiation of the discomfort, nausea, diaphoresis, palpitations, lightheadedness, dizziness or syncope. PAST MEDICAL HISTORY: 1. Coronary artery disease, status post PCI with 2 drug-eluting stents to the ostial and mid LAD, September 2017. 2. History of TIA. 3. Anxiety. 4. Recurrent noncardiac chest pain secondary to anxiety. 5. GERD. 6. Elevated BMI. 7. Diabetes. 8. History of tobacco abuse. Allergies Allergy/AdvReac Type Severity Reaction Status Date / Time oxycodone Allergy Intermediate NUMBNESS Verified 10/21/18 06:47 OF FACE CHASIDY Inhibitors Allergy Unknown UNKNOWN Verified 10/21/18 06:47 caffeine Allergy Unknown GI SYMPTOMS Verified 10/21/18 06:47 codeine Allergy Unknown GI SYMPTOMS Verified 10/21/18 06:47 levofloxacin Allergy Unknown HEADACHE, Verified 10/21/18 06:47 itchy eyes Home Medications Home Medications Medication Instructions Recorded Confirmed Type aspirin 81 mg PO DAILY 08/10/18 05/02/20 History atorvastatin 80 mg PO DAILY 08/10/18 05/02/20 History baclofen 10 mg PO BID PRN 08/10/18 05/02/20 History clopidogrel [Plavix] 75 mg PO DAILY 08/10/18 05/02/20 History fluoxetine [Prozac] 40 mg PO DAILY 08/10/18 05/02/20 History fluticasone propionate [Flonase 2 spray INTRANASAL DAILY 08/10/18 05/02/20 History Allergy Relief] levothyroxine 112 mcg PO DAILY 08/10/18 05/02/20 History loratadine [Claritin] 10 mg PO HS 08/10/18 05/02/20 History lorazepam [Ativan] 0.5 mg PO BID PRN 08/10/18 05/02/20 History metformin 1,000 mg PO BID 08/10/18 05/02/20 History nitroglycerin [Nitrostat] 1 dose SUBLINGUAL UD PRN 08/10/18 05/02/20 History pantoprazole [Protonix] 40 mg PO DAILY 08/10/18 05/02/20 History difluprednate [Durezol] 1 drops OP .every three hours #5 ml 10/21/18 05/02/20 Rx buspirone 30 mg PO BID 05/02/20 05/02/20 History linagliptin [Tradjenta] 5 mg PO DAILY 05/02/20 05/02/20 History losartan 25 mg PO DAILY 05/02/20 05/02/20 History metoprolol tartrate 12.5 mg PO BID 05/02/20 05/02/20 History tolterodine 2 mg PO DAILY 05/02/20 05/02/20 History Patient History Medical History Anemia Anxiety Cancer [facility] -- REMOVED Depression Diabetes mellitus, type 2 Fatty liver GERD (gastroesophageal reflux disease) Hearing deficit History of thyroid nodule Hyperlipidemia Hypertension Hypothyroidism Myocardial Infarction 09/2017 - [facility] --> [place] --> [employer] - 2 STENTS PLACED - FOLLOWS W/ DR. LEDEZMA Spinal stenosis Temporomandibular joint disorder Transient ischemic attack (TIA) MULTIPLE - LAST IN 2003 Surgical History [facility] of cardiac [facility]2017 - [place] [facility] - 2 STENTS PLACED - FOLLOWS W/ DR. LEDEZMA History of cataract surgery LEFT History of cholecystectomy History of colonoscopy History of esophagogastroduodenoscopy (EGD) History of heart artery stent X 2 History of herniorrhaphy UMBILICAL History of partial thyroidectomy History of repair of rotator cuff RT History of surgery SURGERY TO URETER "SHORTENING OF URETER R/T ADHESIONS" History of tonsillectomy Nausea and vomiting after administration of anesthetic agent Status post TRACY-BSO Family History Mother Family history of diabetes mellitus Brother Family history of diabetes mellitus Social History Smoking Status: Former smoker Second Hand Exposure: No; Hx Alcohol Use: No Hx Substance Use: No Preferred Language: Ukrainian Communication Ability: Effective Hand Trimmer Required: No Beliefs That Will Affect Care: None Current Living Situation: Alone Other Information That Helps Us Care for You: No Feels Safe at Home: Yes Safety Concerns: Feels Safe At This Time Review of Systems Review of Systems: All systems reviewed & are unremarkable except as noted in HPI & below Physical Exam Physical Exam: General: Awake, alert and oriented x 3. No acute distress. HEENT: Normocephalic, atraumatic. Pupils equal, round and reactive to light and accommodation. Extraocular muscles are intact. Anicteric sclera. Moist mucous membranes. Neck: No JVD. No bruit. Cardiovascular: Regular. Positive S-4. Normal S-1 and S-2. No S-3. No murmurs or rubs. Pulmonary: Clear to auscultation B/L. No rales, rhonchi or wheezing Abdomen: Bowel sounds x 4, soft. No rebound, guarding or tenderness. No organomegaly. Extremities: No clubbing, cyanosis or edema. +2 pedal pulses bilaterally. Skin: Warm and dry. Musculoskeletal: Right sided second and fourth ribs stuck in inhalation with direct palpation reproducing her pain Results & Data ([facility]) Vital Signs (Past 12 Hours) Vital Signs Temp Pulse Resp BP Pulse Ox 05/02/20 12:49 62 05/02/20 12:00 59 L 18 133/78 97 05/02/20 11:30 71 21 152/83 H 05/02/20 11:00 59 L 18 141/74 H 96 05/02/20 10:48 64 16 97 05/02/20 10:44 61 18 143/70 H 96 05/02/20 10:02 36.8 C 67 18 162/71 H 99 (1) Chest pain Chest pain type: unspecified Qualified Code(s): R07.9 - Chest pain, unspecified
[2020-05-02] MEDS: HEPARIN SOD 5,000 UNIT/0.5 ML VIAL SQ SCH ×2 (14:39→20:20)
[2020-05-02] MEDS ORDERED: LIDOCAINE 4% CREAM 15 GM TUBE EXT PRN (14:46)
[2020-05-02] MEDS: ACETAMINOPHEN 325 MG TAB PO PRN ×2 (15:32→19:31)
[2020-05-02] MEDS: INSULIN ASPART 100 UNITS/ML 3 ML PEN SC SCH ×2 (17:36→20:27)
[2020-05-02] MEDS: BusPIRone 15 MG TAB PO SCH (20:20)
[2020-05-02] MEDS: METOPROLOL TARTRATE 25 MG TAB PO SCH (20:21)
[2020-05-02] MEDS ORDERED: LORATADINE 10 MG TAB PO SCH (21:00)
[2020-05-02] MEDS: IBUPROFEN 600 MG TAB PO PRN (22:41)
[2020-05-03 06:08] LABS: Hematocrit (blood only) 34.9 % (37-47); Mean Corpuscular Hemoglobin 26.4 pg (25-34); Mean Corpuscular Hgb Conc 31.5 g/dL (32-36); Mean Corpuscular Volume 83.9 fL (80-100); Mean Platelet Volume 9.8 fL (7.4-10.4); Platelet Count 222 K/uL (130-400); RDW Coefficient of Variation 15.3 % (11.5-14.5); RDW Standard Deviation 47.2 fL (36.4-46.3); Red Blood Count 4.16 M/uL (4.2-5.4); White Blood Count 7.25 K/uL (4.8-10.8)
[2020-05-03] MEDS ORDERED: LEVOTHYROXINE SODIUM 112 MCG TABLET PO SCH (06:30)
[2020-05-03] MEDS: HEPARIN SOD 5,000 UNIT/0.5 ML VIAL SQ SCH ×2 (06:41→12:56)
[2020-05-03 06:47] LABS: BUN Creatinine Ratio 17.1 (10-20); Calcium 8.4 mg/dl (8.5-10.1); Creatinine Clr Calc Pharmacy 52.8 ml/min; Est GFR (African American) 58.1; Est GFR (Non-African American) 50.1
[2020-05-03 07:07] LABS: Estimated Average Glucose 140 mg/dl; Hemoglobin A1C 6.5 % (4.5-5.6)
[2020-05-03] MEDS: INSULIN ASPART 100 UNITS/ML 3 ML PEN SC SCH ×2 (08:19→11:44)
[2020-05-03] MEDS ORDERED: DOBUTamine HCL 12.5 MG/ML 20 ML VIAL IV ONE (08:51)
[2020-05-03] MEDS ORDERED: METOPROLOL TARTRATE 1 MG/ML VIAL IV ONE (08:51)
[2020-05-03] MEDS ORDERED: ATROPINE SULFATE 0.1 MG/ML 10ML SYR IV ONE (08:51)
[2020-05-03] MEDS: BusPIRone 15 MG TAB PO SCH (08:53)
[2020-05-03] MEDS ORDERED: TOLTERODINE TARTRATE LA 2 MG CAPCR PO SCH (09:00)
[2020-05-03] MEDS ORDERED: ASPIRIN 81 MG ECTAB PO SCH (09:00)
[2020-05-03] MEDS ORDERED: LOSARTAN POTASSIUM 25 MG TAB PO SCH (09:00)
[2020-05-03] MEDS ORDERED: PANTOprazole 40 MG TAB PO SCH (09:00)
[2020-05-03] MEDS ORDERED: FLUOXETINE HCL 20 MG CAP PO SCH (09:00)
[2020-05-03] MEDS ORDERED: ATORVASTATIN 40 MG TAB PO SCH (09:00)
[2020-05-03] MEDS ORDERED: FLUTICASONE PROPIONATE NA SPR 16 GM BTL SCH (09:00)
[2020-05-03] MEDS ORDERED: CLOPIDOGREL BISULFATE 75 MG TAB PO SCH (09:00)
[2020-05-03] MEDS ORDERED: LOSARTAN POTASSIUM 25 MG TAB PO ONE (10:05)
--- NOTE | 2020-05-03 10:08 | Cardiology Progress Note ---
Date of Service May 03, 2020 Assessment & Plan (1) Chest pain: (2) CAD (coronary artery disease): (3) Hypertension: (4) DM type 2 (diabetes mellitus, type 2): Chest pain resolved. Nonischemic dobutamine stress echocardiogram with a hypertensive blood pressure response. No further cardiac testing or intervention is necessary at this time. No cardiac source for chest discomfort. We will increase losartan to 50 mg daily. Okay to discharge from a cardiac standpoint. Follow-up with Dr. Jackson as scheduled. Subjective Patient seen and examined, chart reviewed. States that she is been feeling much better overnight. Notes that her nerves have improved. Denies any chest pain, shortness of breath, palpitations, lightheadedness, dizziness or syncope. Chest pain was not reproduced with dobutamine stress test. Telemetry reviewed: Normal sinus rhythm without arrhythmia or significant ectopy. Review of Systems Review of Systems: All systems reviewed & are unremarkable except as noted in HPI & below Physical Exam Physical Exam: General: Awake, alert and oriented x 3. No acute distress. HEENT: Normocephalic, atraumatic. Pupils equal, round and reactive to light and accommodation. Extraocular muscles are intact. Anicteric sclera. Moist mucous membranes. Neck: No JVD. No bruit. Cardiovascular: Regular. Positive S-4. Normal S-1 and S-2. No S-3. No murmurs or rubs. Pulmonary: Clear to auscultation B/L. No rales, rhonchi or wheezing Abdomen: Bowel sounds x 4, soft. No rebound, guarding or tenderness. No organomegaly. Extremities: No clubbing, cyanosis or edema. +2 pedal pulses bilaterally. Skin: Warm and dry. Results & Data Vital Signs (Past 12 Hours) Vital Signs Temp Pulse Pulse Resp BP Pulse Ox 05/03/20 07:43 36.5 C 61 18 165/83 H 95 05/03/20 07:20 58 L 05/03/20 03:11 36.7 C 60 17 137/75 95 05/03/20 00:49 62 05/02/20 23:12 36.6 C 59 L 18 140/75 95 (1) Chest pain Chest pain type: unspecified Qualified Code(s): R07.9 - Chest pain, unspecified
[2020-05-03] MEDS: METOPROLOL TARTRATE 25 MG TAB PO SCH (10:32)
[2020-05-03] MEDS: IBUPROFEN 600 MG TAB PO PRN (10:32)
--- NOTE | 2020-05-03 12:41 | Electrocardiogram Report ---
Test Reason : Blood Pressure : / mmHG Vent. Rate : 063 BPM Atrial Rate : 063 BPM P-R Int : 228 ms QRS Dur : 082 ms QT Int : 448 ms P-R-T Axes : 063 -11 062 degrees QTc Int : 458 ms Sinus rhythm with 1st degree A-V block Otherwise normal ECG When compared with ECG of 02-MAY-2020 10:09, No significant change was found Confirmed by Alan Brooke ([id number]) on 05/03/2020 12:41:00 PM Referred By: REFERRED SELF Confirmed By:Alan Brooke
--- NOTE | 2020-05-03 13:53 | Hospitalist Progress Note ---
Date of Service May 03, 2020 Assessment & Plan (1) Chest pain: This is a 70-year-old female who has significant past medical history of CAD with history of PCI in 2018 with 2 GLORIA to ostial and mid LAD, T2DM, HTN, CKD stage III, hypothyroidism, who presents to ED secondary to right-sided chest pain x5 hours. Chest pain appears reproducible, possible musculoskeletal component. Given significant cardiac history will admit under observation to rule out ACS. Serial cardiac troponin and EKG are negative for any ACS Appreciate cardiology input and recommendation Status post nonischemic dobutamine stress echo (2) CAD (coronary artery disease): hx of chronic coronary artery disease, NSTEMI 09/28/17 ultimately treated with 2 drug-eluting stents to the ostial and mid left anterior descending artery repeat cath 12/2017: Widely patent ostial and mid LAD stents with a 20 to 30% mid segment disease and 40 to 50% distal 1st diagonal branch vessel disease. The remaining coronary arteries demonstrated 20% obtuse marginal branch vessel disease and mild luminal irregularities of the RCA. Follows Dr. Jackson on ASA, statin, metoprolol and losartan as outpt Will continue current medications (3) DM type 2 (diabetes mellitus, type 2): Last A1c 6.2 on 01/18/2020 Repeat A1c in a.m. Hold metformin and Tradjenta NovoLog per protocol (4) Hypertension: Blood pressure stable Continue metoprolol, losartan Noted to have hypertensive response during stress echo Will increase losartan to 50 mg daily on discharge (5) Hypothyroidism: Continue levothyroxine (6) DVT prophylaxis: SQ Heparin Disposition: admit to telemetry Follow-up: PCP Dr. Agudelo upon discharge Admission and Anticipated Discharge Date Admission Date: May 02, 2020 Subjective 05/03/2020 The patient was seen and examined in telemetry unit She was admitted with atypical chest pain with history of CAD status post PCI in 2 GLORIA Still has nonspecific pain without any associated symptoms She is a status post negative dobutamine stress echo Review of Systems Review of Systems: All systems reviewed and are unremarkable except as noted below Respiratory: no dyspnea Cardiovascular: + chest pain (Bilateral upper chest wall with tenderness on palpation) Physical Exam Physical Exam: Lying in bed comfortably Constitutional: well developed and well nourished; no acute distress and not ill appearing Eyes: PERRL, conjunctivae normal, anicteric sclerae ENMT: external ear and nose normal, oropharynx normal Neck: trachea midline, no thyromegaly Respiratory: normal respiratory effort; no respiratory distress Auscultation: lungs clear to auscultation bilaterally Cardiovascular: Rate/Rhythm: regular rate and regular rhythm Heart Sounds: no murmur Gastrointestinal (Abdomen): Inspection/Auscultation: abdomen normal to inspection; abdomen not distended Percussion/Palpation: abdomen soft; abdomen nontender Musculoskeletal: No acute arthritis involving any joints Neurologic: moves all extremities; no focal motor deficits Lymphatic: no cervical or axillary lymphadenopathy Results & Data Results & Data ([facility]) Vital Signs (Past 12 Hours) Vital Signs Temp Pulse Pulse Resp BP Pulse Ox 05/03/20 11:11 36.5 C 69 19 135/76 96 05/03/20 07:43 36.5 C 61 18 165/83 H 95 05/03/20 07:20 58 L 05/03/20 03:11 36.7 C 60 17 137/75 95 Laboratory Results Short CBC 05/03/20 Range/Units 05:23 WBC 7.25 (4.8-10.8) K/uL Hgb 11.0 L (12.0-16.0) g/dL Hct 34.9 L (37-47) % Plt Count 222 (130-400) K/uL BMP 05/03/20 05:23 Sodium 145 Potassium 4.0 Chloride 111 H Carbon Dioxide 28 BUN 19 H Creatinine 1.10 Glucose 92 Calcium 8.4 L Cardiac Enzymes 05/02/20 05/02/20 Range/Units 15:58 21:48 Troponin I < 0.015 < 0.015 (0-0.045) ng/ml Medications Administered Current Inpatient Medications Acetaminophen (Tylenol) 650 mg PO Q4H PRN PRN Reason: Pain or Fever Stop: 06/01/20 12:48 Last Admin: 05/02/20 19:31 Dose: 650 mg Documented by: Al Hydrox/Mg Hydrox/Simethicone (Maalox) 15 ml PO Q4H PRN PRN Reason: Dyspepsia Stop: 06/01/20 12:48 Aspirin (Ecotrin Ectab) 81 mg PO DAILY [facility] Stop: 06/02/20 08:59 Last Admin: 05/03/20 08:55 Dose: 81 mg Documented by: Atorvastatin Calcium (Lipitor) 80 mg PO DAILY [facility] Stop: 06/02/20 08:59 Last Admin: 05/03/20 08:54 Dose: 80 mg Documented by: Baclofen (Lioresal) 10 mg PO BID PRN PRN Reason: MUSCLE SPASMS Stop: 06/01/20 13:54 Buspirone HCl (Buspar) 30 mg PO BID [facility] Stop: 06/01/20 20:59 Last Admin: 05/03/20 08:53 Dose: 30 mg Documented by: Clopidogrel Bisulfate (Plavix) 75 mg PO DAILY [facility] Stop: 06/02/20 08:59 Last Admin: 05/03/20 10:32 Dose: 75 mg Documented by: Dextrose (Dextrose 50%) 25 - 50 ml IV UD PRN; Protocol PRN Reason: Hypoglycemia Protocol Stop: 06/01/20 12:48 Fluoxetine HCl (Prozac) 40 mg PO DAILY [facility] Stop: 06/02/20 08:59 Last Admin: 05/03/20 08:54 Dose: 40 mg Documented by: Fluticasone Propionate (Flonase) 2 sprays NA DAILY [facility] Stop: 06/02/20 08:59 Last Admin: 05/03/20 08:55 Dose: 2 sprays Documented by: Glucagon (Glucagen) 1 mg SQ UD PRN; Protocol PRN Reason: Hypoglycemia Protocol Stop: 06/01/20 12:48 Glucose (Dex4 Glucose) 4 - 8 tabs PO UD PRN; Protocol PRN Reason: Hypoglycemia Protocol Stop: 06/01/20 12:48 Glucose (Glucose 40%) 15 - 30 gm PO UD PRN; Protocol PRN Reason: Hypoglycemia Protocol Stop: 06/01/20 12:48 Heparin Sodium (Porcine) (Heparin Sodium (Porcine)) 5,000 units SQ Q8 [facility] Stop: 06/01/20 13:59 Last Admin: 05/03/20 12:56 Dose: Not Given Documented by: Ibuprofen (Motrin) 600 mg PO Q6H PRN PRN Reason: Chest Pain Stop: 06/01/20 14:45 Last Admin: 05/03/20 10:32 Dose: 600 mg Documented by: Insulin Aspart (Novolog Flexpen) 0 units SC ACHS [facility] Stop: 06/01/20 16:29 Last Admin: 05/03/20 11:44 Dose: 3 units Documented by: Levothyroxine Sodium (Synthroid) 112 mcg PO DAILYBB [facility] Stop: 06/02/20 06:29 Last Admin: 05/03/20 06:41 Dose: 112 mcg Documented by: Lidocaine (Anecream 4% Cream) 1 appln EXT Q6 PRN PRN Reason: Chest Pain Stop: 06/01/20 14:45 Loratadine (Claritin) 10 mg PO HS [facility] Stop: 06/01/20 20:59 Last Admin: 05/02/20 20:21 Dose: 10 mg Documented by: Lorazepam (Ativan) 0.5 mg PO BID PRN PRN Reason: Anxiety Stop: 06/01/20 13:54 Losartan Potassium (Cozaar) 50 mg PO DAILY [facility] Stop: 06/03/20 08:59 Magnesium Hydroxide (Milk Of Magnesia) 30 ml PO Q12H PRN PRN Reason: Constipation Stop: 06/01/20 12:48 Metoprolol Tartrate (Lopressor) 12.5 mg PO BID [facility] Stop: 06/01/20 20:59 Last Admin: 05/03/20 10:32 Dose: 12.5 mg Documented by: Miscellaneous (Carbohydrates For Hypoglycemia) 15 - 30 gm PO UD PRN PRN Reason: Hypoglycemia Protocol Stop: 06/01/20 12:48 Ondansetron HCl (Zofran) 4 mg IV Q6H PRN PRN Reason: Nausea Stop: 06/01/20 12:48 Pantoprazole Sodium (Protonix) 40 mg PO DAILY [facility] Stop: 06/02/20 08:59 Last Admin: 05/03/20 08:54 Dose: 40 mg Documented by: Polyethylene Glycol (Miralax Powder Packet) 17 gm PO DAILY PRN PRN Reason: Constipation Stop: 06/01/20 12:48 Tolterodine Tartrate (Detrol La) 2 mg PO DAILY [facility] Stop: 06/02/20 08:59 Last Admin: 05/03/20 08:54 Dose: 2 mg Documented by: (1) Chest pain Chest pain type: unspecified Qualified Code(s): R07.9 - Chest pain, unspecified
--- NOTE | 2020-05-04 07:59 | Discharge Summary ---
Date of Service May 04, 2020 Admission HPI Per Admitting Provider This is a 70-year-old female who has significant past medical history of CAD with history of PCI in 2018 with 2 GLORIA to ostial and mid LAD, T2DM, HTN, CKD stage III, hypothyroidism, who presents to ED secondary to right-sided chest pain x5 hours. Symptoms started at approximately 8 AM at resting position. It occurred shortly after eating oatmeal and decaf coffee. Did not feel like reflux. Pain came on abruptly, described as sharp, rated as a 8 out of 10, tried nitro without relief and was associated with radiation to right shoulder and dry heaving. She denies any associated shortness of breath, palpitations, lightheadedness, dizziness, diaphoresis or loreto emesis. She has had similar episodes in the past in relation to her coronary artery disease, although previously she did not experience dry heaving. She denies any recent heavy lifting, twisting or trauma. She was very concerned and opted to present to ED. In ED she received ASA 325 and pain is now rated as a 4 out of 10 but is still present. It is made slightly worse with deep breathing as well as touching, but is not affected by position. She denies any recent illness, fever, chills, sweats, syncope, abdominal pain, diarrhea, melena, medic easier, dysuria, increased urgency or frequency with urination. She has no known sick contacts and denies any COVID-19 exposure. Denies any loss of taste or smell. Appetite is otherwise been normal. She had been compliant with her medications, but did not take her morning meds today. In ED she remained hemodynamically stable. Her initial troponin and EKG were otherwise unremarkable. She did receive full-strength aspirin. Lab work was generally unremarkable except for mild hyperglycemia. Chest x-ray revealed cardiomegaly but no overt acute abnormality. Admission Exam Per Admitting Provider Physical Exam: Constitutional: WD/WN, vitals as above, NAD, sitting up in bed, pleasant, conversing easily Head: Normocephalic, Atraumatic Eyes: PERRL, conjunctivae normal, anicteric sclerae ENMT: external ear and nose normal, oropharynx normal Neck: trachea midline, no thyromegaly normal visual inspection Respiratory: normal respiratory effort, lungs clear to auscultation, no wheeze, rales, rhonchi. Normal insp/exp effort, no accessory muscle use Cardiovascular: RRR, no murmur, no edema Vessels: no JVD or carotid bruit Chest: normal inspection of chest, pain to palpation to right chest wall, pain appeared reproducible Abdomen: normal bowel sounds, soft, nontender, no hepatosplenomegaly Musculoskeletal: no cyanosis or clubbing, extremities motor strength 5/5 Skin: no rashes, warm and dry normal turgor Neurologic: PERRL, EOMI, accommodation nl, no face palsy, no dysarthria CN's II-XI intact bilaterally and moves all extremities Psychiatric: A+Ox3, euthymic affect Lymphatic: no cervical or axillary lymphadenopathy : deferred Principal Diagnosis Chest pain, nonischemic dobutamine stress echo, hypertensive response to dobutamine stress echo, CAD Discharge Exam Constitutional well developed and well nourished; no acute distress and not ill appearing Eyes PERRL, conjunctivae normal, anicteric sclerae ENMT external ear and nose normal, oropharynx normal Neck trachea midline, no thyromegaly Respiratory normal respiratory effort; no respiratory distress Auscultation: lungs clear to auscultation bilaterally Cardiovascular Rate/Rhythm: regular rate and regular rhythm Heart Sounds: no murmur Gastrointestinal (Abdomen) Inspection/Auscultation: abdomen normal to inspection; abdomen not distended Percussion/Palpation: abdomen soft; abdomen nontender Neurologic moves all extremities; no focal motor deficits Lymphatic no cervical or axillary lymphadenopathy Discharge Data Allergies Allergy/AdvReac Type Severity Reaction Status Date / Time oxycodone Allergy Intermediate NUMBNESS Verified 10/21/18 06:47 OF FACE CHASIDY Inhibitors Allergy Unknown UNKNOWN Verified 10/21/18 06:47 caffeine Allergy Unknown GI SYMPTOMS Verified 10/21/18 06:47 codeine Allergy Unknown GI SYMPTOMS Verified 10/21/18 06:47 levofloxacin Allergy Unknown HEADACHE, Verified 10/21/18 06:47 itchy eyes Consultations 05/02/20 11:39 ED Decision to Admit Stat 05/02/20 12:49 Consult Cardiology Routine Hospital Course (1) Chest pain: This is a 70-year-old female who has significant past medical history of CAD with history of PCI in 2018 with 2 GLORIA to ostial and mid LAD, T2DM, HTN, CKD stage III, hypothyroidism, who presents to ED secondary to right-sided chest pain x5 hours. Chest pain appears reproducible, possible musculoskeletal component. Given significant cardiac history will admit under observation to rule out ACS. Serial cardiac troponin and EKG are negative for any ACS Appreciate cardiology input and recommendation Status post nonischemic dobutamine stress echo (2) CAD (coronary artery disease): hx of chronic coronary artery disease, NSTEMI 09/28/17 ultimately treated with 2 drug-eluting stents to the ostial and mid left anterior descending artery repeat cath 12/2017: Widely patent ostial and mid LAD stents with a 20 to 30% mid segment disease and 40 to 50% distal 1st diagonal branch vessel disease. The remaining coronary arteries demonstrated 20% obtuse marginal branch vessel disease and mild luminal irregularities of the RCA. Follows Dr. Jackson on ASA, statin, metoprolol and losartan as outpt Will continue current medications (3) DM type 2 (diabetes mellitus, type 2): Last A1c 6.2 on 01/18/2020 Repeat A1c in a.m. Hold metformin and Tradjenta NovoLog per protocol (4) Hypertension: Blood pressure stable Continue metoprolol, losartan Noted to have hypertensive response during stress echo Will increase losartan to 50 mg daily on discharge (5) Hypothyroidism: Continue levothyroxine (6) DVT prophylaxis: SQ Heparin Disposition: admit to telemetry Follow-up: PCP Dr. Agudelo upon discharge Total Time Total Time Spent Total Time Spent (In Minutes): 32 minutes Total Time Includes: Examination of the Patient, Discharge Planning, Medication Reconciliation and Communication With Other Providers Discharge Plan Discharge Items Patient Disposition: Home - Self-Care Reason For Visit: CHEST PAIN Discharge Diagnosis: Chest pain, nonischemic dobutamine stress echo, hypertensive response to dobutamine stress echo, CAD Condition on Discharge: Good Activity: Resume your previous activity Non-emergency contact: Primary Care Provider Call non-emergency contact if: you have any medication questions and your symptoms worsen Follow-up/Referrals: Bibiana Agudelo MD [Primary Care Provider] - 05/09/20 11:20 am (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) Diet: Carb Consistent or DM2 and Heart Healthy Addtl Attending Provider Instructions: Your lisinopril dose has been increased Try Tylenol for chest wall pain Pending Studies at Discharge: No Stand-Alone Forms: My [employer], Smoking Cessation Medications and DC Order Prescriptions: Continued metformin 500 mg Tablet 1,000 mg PO BID RF: 0 atorvastatin 80 mg Tablet 80 mg PO DAILY RF: 0 clopidogrel [Plavix] 75 mg Tablet 75 mg PO DAILY RF: 0 lorazepam [Ativan] 0.5 mg Tablet 0.5 mg PO BID PRN (Reason: Anxiety) RF: 0 baclofen 10 mg Tablet 10 mg PO BID PRN (Reason: MUSCLE SPASMS) RF: 0 pantoprazole [Protonix] 40 mg Tablet,Delayed Release (Dr/Ec) 40 mg PO DAILY RF: 0 nitroglycerin [Nitrostat] 0.4 mg Tablet, Sublingual 1 dose Sublingual UD PRN (Reason: Chest Pain) RF: 0 aspirin 81 mg Tablet,Chewable 81 mg PO DAILY RF: 0 fluoxetine [Prozac] 20 mg Capsule 40 mg PO DAILY RF: 0 fluticasone propionate [Flonase Allergy Relief] 50 mcg/actuation [place],Suspension 2 spray INTRANASAL DAILY RF: 0 loratadine [Claritin] 10 mg Tablet 10 mg PO HS RF: 0 levothyroxine 112 mcg Tablet 112 mcg PO DAILY RF: 0 buspirone 30 mg tablet 30 mg PO BID RF: 0 Tradjenta 5 mg tablet 5 mg PO DAILY RF: 0 tolterodine 2 mg capsule,extended release 24hr 2 mg PO DAILY RF: 0 metoprolol tartrate 25 mg tablet 12.5 mg PO BID RF: 0 Durezol 0.05 % drops 1 drops OP .every three hours Qty: 5 RF: 0 Changed losartan 50 mg tablet 50 mg PO DAILY 30 Days Qty: 30 RF: 0 Discharge Orders: Discharge Order (Routine); Ordered 05/03/20 Ordered By: Janae Garber Admission Data Admit Date/Time: 05/02/20 11:55 Attending Provider: Janae Garber Admit Provider: Jw Paris Primary Care Provider: Bibiana Agudelo Other Providers: Jw Paris ; Frank Iglesias Other Interventions: Discharge Summary Assessment (RN) Last Done: 05/03/20 14:25 DC Date/Time DO NOT enter until pt leaves facility: 05/03/20 16:14
[2020-05-04] MEDS ORDERED: LOSARTAN POTASSIUM 50 MG TAB PO SCH (09:00)
== END 2020-05-03 16:14 | disposition home or self-care (01) ==
LOC: ED 10:00 → 2E 10:00 → SUATTDRO 11:55 → 2E 12:27